=== PATIENT | female | born 1935 | race Caucasian/White ===

== ENCOUNTER 2016-09-08 | Outpatient (CLI) | payer MEDICARE | END 2016-09-08 09:34 | disposition critical access hospital (66) | CPT/HCPCS: A0425; A0429 ==

== ENCOUNTER 2016-09-08 09:50 | Emergency (ER) | payer MEDICARE | END 2016-09-08 12:20 | disposition home or self-care (01) | DX: Z00.00 Encounter for general adult medical examination without abnormal findings (principal); Z13.9 Encounter for screening, unspecified; I10 Essential (primary) hypertension; E11.42 Type 2 diabetes mellitus with diabetic polyneuropathy; K21.9 Gastro-esophageal reflux disease without esophagitis; M19.90 Unspecified osteoarthritis, unspecified site; Z79.82 Long term (current) use of aspirin ==

== ENCOUNTER 2016-12-22 13:17 | Outpatient (CLI) | payer MEDICARE | END 2016-12-22 13:18 | disposition critical access hospital (66) | DX: R40.0 Somnolence (principal); R41.0 Disorientation, unspecified; W18.39XA Other fall on same level, initial encounter; Y92.511 Restaurant or cafe as the place of occurrence of the external cause | CPT/HCPCS: A0425; A0427 ==

== ENCOUNTER 2016-12-22 13:36 | Emergency (ER) | payer MEDICARE ==
--- NOTE | 2016-12-22 13:51 | ED Physician Documentation ---
PD HPI SYNCOPE - Stated complaint Stated Complaint: GLF/CONFUSED - Chief complaint Chief Complaint: Neuro - History obtained from History obtained from: Patient, EMS - Additional information Additional information: This is an 81 -year-old woman lives at [facility], she has a history of hypertension, osteoarthritis, GERD, iron deficiency anemia. She went out to lunch today after getting her nails done and was at the restaurant where she fell backwards. She says she just slipped, and didn't get hurt. On heating unit installer assessment she was mildly hypotensive at about 90/40 and slightly confused which has resolved. At this juncture she says she feels fine has no specific complaints. Review of Systems Ten Systems: 10 systems reviewed and negative Constitutional: denies: Fever, Chills Throat: denies: Sore throat Cardiac: denies: Chest pain / pressure, Palpitations Respiratory: denies: Dyspnea, Cough GI: denies: Abdominal Pain, Nausea, Vomiting, Bloody / black stool PD PAST MEDICAL HISTORY - Past Medical History Past Medical History: Yes Cardiovascular: Hypertension Respiratory: None Neuro: Peripheral neuropathy Endocrine/Autoimmune: Type 2 diabetes GI: GERD Psych: Depression Musculoskeletal: Osteoarthritis, Osteoporosis - Past Surgical History Past Surgical History: Yes General: Appendectomy Ortho: Hip replacement, Knee replacement - Present Medications Home Medications: Ambulatory Orders Medication Instructions Recorded Confirmed Aspirin Chewable [[place] 325 mg PO BID 01/19/15 02/28/16 Aspirin] Citalopram [CeleXA] 40 mg PO DAILY 01/19/15 02/28/16 Furosemide 40 mg PO BID 01/19/15 02/28/16 Lisinopril 5 mg PO DAILY 01/19/15 02/28/16 Multivitamin [Multi-Day Vitamins] 1 each PO DAILY 01/19/15 02/28/16 Pantoprazole [Protonix] 40 mg PO DAILY 01/19/15 02/28/16 traZODone [Desyrel] 150 mg PO HS PRN 01/19/15 02/28/16 Cholecalciferol (Vitamin D3) 2,000 unit PO DAILY 01/24/16 02/28/16 [Vitamin D3] Cyanocobalamin (Vitamin B-12) 2,000 mcg PO DAILY 01/24/16 02/28/16 [Vitamin B-12] Acetaminophen [Tylenol Extra 500 mg PO BID 02/28/16 02/28/16 Strength] Acetaminophen [Tylenol] 650 mg PO Q4H PRN 02/28/16 02/28/16 Ascorbic Acid [Vitamin C] 500 mg PO DAILYWM 02/28/16 02/28/16 Ferrous Sulfate 325 mg PO DAILYWM 02/28/16 02/28/16 Folic Acid 1 mg PO DAILY 02/28/16 02/28/16 Potassium Chloride [K-Dur] 20 meq PO BIDWM 02/28/16 02/28/16 oxyCODONE [Roxicodone] 5 - 10 mg PO Q4H PRN 02/28/16 02/28/16 - Allergies Allergies/Adverse Reactions: Allergies Allergy/AdvReac Type Severity Reaction Status Date / Time No Known Drug Allergies Allergy Verified 02/27/16 21:05 - Social History Does the pt smoke?: No Smoking Status: Never smoker Does the pt drink ETOH?: Yes Does the pt have substance abuse?: No - Immunizations Immunizations are current?: Yes - POLST Patient has POLST: Yes POLST Status: DNR PD ED PE NORMAL - Vitals Vital signs reviewed: Yes - General General: Alert and oriented X 3, No acute distress, Well developed/nourished - HEENT HEENT: PERRL, EOMI - Neck Neck: Supple, no meningeal sign, No bony TTP - Cardiac Cardiac: RRR, No murmur - Respiratory Respiratory: No respiratory distress, Clear bilaterally - Abdomen Abdomen: Soft, Non tender - Extremities Extremities: No edema, No calf tenderness / cord - Neuro Neuro: Alert and oriented X 3, Normal speech - Psych Psych: Normal mood, Normal affect Results - Vitals Vitals: Vital Signs - 24 hr 12/22/16 12/22/16 12/22/16 13:35 14:05 15:13 Temperature 36.5 C Heart Rate 85 92 Heart Rate [ 76 Standing] Respiratory 17 14 Rate Blood Pressure 107/51 L 132/69 H Blood Pressure 116/65 [Standing] O2 Saturation 96 95 Oxygen O2 Source [With Activity] Room air O2 Source [Without Activity] Room air O2 Source Room air - EKG (time done) 1355 Rate: Rate (enter#) (77) Rhythm: NSR [place]: Normal Intervals: 1st degree AVB QRS: Normal Ischemia: Normal ST segments Computer interpretation: Agree with computer - Labs Labs: Laboratory Tests 12/22/16 12/22/16 12/22/16 14:35 14:35 14:35 WBC 6.2 RBC 3.66 L Hgb 11.8 L Hct 35.3 L MCV 96.5 MCH 32.3 H MCHC 33.5 RDW 14.6 Plt Count 187 MPV 7.6 L Neut # 3.3 Lymph # 1.9 [place]yer # 0.7 Eos # 0.1 Baso # 0.1 Absolute Nucleated RBC 0.00 Nucleated RBCs 0.0 Sodium 141 Potassium 4.0 Chloride 106 Carbon Dioxide 25 Anion Gap 10.0 BUN 9 Creatinine 0.7 Estimated GFR (MDRD) 80 L Glucose 144 H Calcium 8.5 Total Bilirubin 0.3 AST 12 ALT 10 Alkaline Phosphatase 84 Troponin I < 0.04 Total Protein 6.5 L Albumin 3.6 Globulin 2.9 Albumin/Globulin Ratio 1.2 Lipase 20 L PD MEDICAL DECISION MAKING - ED course ED course: This is an 81-year-old woman who had a mechanical ground-level fall at a restaurant today, she had been drinking a little bit. No syncope. There is no evidence of life-threatening emergency here, labs were checked without interval change from prior. She was not orthostatic. She was not clinically intoxicated. Departure - Departure Disposition: 01 Home, Self Care Clinical Impression: Fall from ground level, Transient hypotension, Chronic anemia Condition: Good Record reviewed to determine appropriate education?: Yes Instructions: ED Mechanical Fall Comments: Call your doctor to arrange a follow up appointment. Make the next available appointment. In the interim return anytime if worse or if new symptoms develop.
[2016-12-22 14:46] LABS: BASOPHILS # (AUTO) 0.1 10^3/uL (0.0-0.1); BASOPHILS % (AUTO) 0.9 %; EOSINOPHILS # (AUTO) 0.1 10^3/uL (0.0-0.7); EOSINOPHILS % (AUTO) 2.1 %; HCT - HEMATOCRIT 35.3 % (37.0-47.0); HGB - HEMOGLOBIN 11.8 g/dL (12.0-16.0); LYMPHOCYTES # (AUTO) 1.9 10^3/uL (1.5-3.5); LYMPHOCYTES % (AUTO) 31.6 %; MEAN CORPUSCULAR HEMOGLOBIN 32.3 pg (27.0-31.0); MEAN CORPUSCULAR HGB CONC 33.5 g/dL (32.0-36.0); MEAN CORPUSCULAR VOLUME 96.5 fL (81.0-99.0); MEAN PLATELET VOLUME 7.6 fL (7.9-10.8); MONOCYTES # (AUTO) 0.7 10^3/uL (0.0-1.0); MONOCYTES % (AUTO) 11.9 %; NEUTROPHILS # (AUTO) 3.3 10^3/uL (1.5-6.6); NEUTROPHILS % (AUTO) 53.5 %; RED BLOOD COUNT 3.66 10^6/uL (4.20-5.40); RED CELL DISTRIBUTION WIDTH 14.6 % (12.0-15.0); UNCORRECTED WHITE BLOOD COUNT 6.2 x10^3/uL; WHITE BLOOD COUNT 6.2 x10^3/uL (4.8-10.8)
[2016-12-22 15:07] LABS: ALBUMIN/GLOBULIN RATIO 1.2 (1.0-2.2); BILIRUBIN,TOTAL 0.3 mg/dL (0.2-1.0); CALCIUM 8.5 mg/dL (8.5-10.3); CREATININE 0.7 mg/dL (0.4-1.0); TOTAL PROTEIN 6.5 g/dL (6.7-8.2)
[2016-12-22 16:43] VITALS: BP 125/71
== END 2016-12-22 16:41 | disposition home or self-care (01) ==
LOC: EDUNIT# → ED 13:36
DX: I95.89 Other hypotension (principal); W01.0XXA Fall on same level from slipping, tripping and stumbling without subsequent striking against object, initial encounter; Y92.59 Other trade areas as the place of occurrence of the external cause; D50.9 Iron deficiency anemia, unspecified; E11.42 Type 2 diabetes mellitus with diabetic polyneuropathy; I10 Essential (primary) hypertension; K21.9 Gastro-esophageal reflux disease without esophagitis; M19.90 Unspecified osteoarthritis, unspecified site; Z79.82 Long term (current) use of aspirin
CPT/HCPCS: 80053; 81001; 81003; 83690; 84484; 85025; 87086; 93005; 93010; 99284

== ENCOUNTER 2017-02-16 22:13 | Outpatient (CLI) | payer MEDICARE | END 2017-02-16 22:14 | disposition critical access hospital (66) | DX: M79.604 Pain in right leg (principal); W18.30XA Fall on same level, unspecified, initial encounter; Y92.039 Unspecified place in apartment as the place of occurrence of the external cause | CPT/HCPCS: A0425; A0429 ==

== ENCOUNTER 2017-02-16 22:25 | Emergency (ER) | payer MEDICARE ==
[2017-02-16] MEDS ORDERED: ONDANSETRON 4 MG/2 ML VIAL IVP STA (23:03)
[2017-02-16] MEDS ORDERED: HYDROmorphone 1 MG/ML SYRINGE IVP STA (23:03)
[2017-02-16] MEDS ORDERED: ONDANSETRON 4 MG/2 ML VIAL ONE (23:25)
[2017-02-16] MEDS ORDERED: HYDROmorphone 1 MG/ML SYRINGE ONE (23:25)
[2017-02-16 23:46] LABS: BASOPHILS % (AUTO) 0.6 %; EOSINOPHILS # (AUTO) 0.1 10^3/uL (0.0-0.7); EOSINOPHILS % (AUTO) 1.4 %; HCT - HEMATOCRIT 37.7 % (37.0-47.0); HGB - HEMOGLOBIN 12.4 g/dL (12.0-16.0); LYMPHOCYTES # (AUTO) 1.7 10^3/uL (1.5-3.5); LYMPHOCYTES % (AUTO) 26.5 %; MEAN CORPUSCULAR HGB CONC 32.9 g/dL (32.0-36.0); MEAN CORPUSCULAR VOLUME 97.2 fL (81.0-99.0); MONOCYTES # (AUTO) 0.6 10^3/uL (0.0-1.0); MONOCYTES % (AUTO) 9.4 %; NEUTROPHILS # (AUTO) 4.1 10^3/uL (1.5-6.6); NEUTROPHILS % (AUTO) 62.1 %; RED BLOOD COUNT 3.88 10^6/uL (4.20-5.40); RED CELL DISTRIBUTION WIDTH 14.1 % (12.0-15.0); UNCORRECTED WHITE BLOOD COUNT 6.5 x10^3/uL; WHITE BLOOD COUNT 6.5 x10^3/uL (4.8-10.8)
[2017-02-17 00:03] LABS: ALBUMIN/GLOBULIN RATIO 1.1 (1.0-2.2); BILIRUBIN,TOTAL 0.2 mg/dL (0.2-1.0); CALCIUM 8.6 mg/dL (8.5-10.3); CREATININE 0.7 mg/dL (0.4-1.0); POTASSIUM 3.7 mmol/L (3.5-5.0); TOTAL PROTEIN 7.2 g/dL (6.7-8.2)
--- NOTE | 2017-02-17 00:24 | XRAY Preliminary Report ---
Exam: XR Hip w/Pelvis 2-3V RT IMPRESSION: 1. Bilateral hip prostheses with new intertrochanteric and subtrochanteric right femur fracture. [facility] SITE ID: [id number]
--- NOTE | 2017-02-17 00:27 | XRAY Report ---
EXAM: RIGHT HIP AND PELVIS RADIOGRAPHY EXAM DATE: 02/16/2017 10:46 PM. HISTORY: Pain after injury. Difficulty moving the leg. COMPARISONS: 01/24/2016. TECHNIQUE: 1 view of the pelvis and 2 view of the hip. FINDINGS: Bones: Osteopenia. Bilateral hip prostheses. Metal plate and screws in the left femur. New intertroch anteric and subtrochanteric right femur fracture. Joints: No dislocation seen. Soft Tissues: Vascular calcifications. IMPRESSION: 1. Bilateral hip prostheses with new intertrochanteric and subtrochanteric right femur fracture. [facility] Referring Provider Line: [phone] SITE ID: [id number]
--- NOTE | 2017-02-17 01:19 | ED Physician Documentation ---
PD HPI LOWER EXT INJURY - Stated complaint Stated Complaint: GLF/LEG PAIN - Chief complaint Chief Complaint: Ext Problem - History obtained from History obtained from: Patient - History of Present Illness PD HPI LOW EXT INJURY LOCATION: Right, Hip Type of injury: Fall Where injury occurred: Home Timing - onset: Today Timing - duration: Hours Timing - details: Abrupt onset, Still present Improved by: Rest, Immobilization Worsened by: Moving, Palpating Associated symptoms: No: Weakness, Numbness, Tingling, Swelling Contributing factors: Prior ortho surgery, Prosthetic joint. No: Anticoagulated Similar symptoms before: Diagnosis (hip fracture) Recently seen: Not recently seen - Additional information Additional information: 81 y/o female with a fall in the bathroom of her apartment this evening has pain in the right femur area. She is uncertain how the fall happened she states that she just sort of lost her balance and "slumped" to the ground. The fall was not witnessed, the patient does remember the fall and when directly asked if this could have been the hip giving way she indicated it certainly could have been. She was not ill prior to this happening and she denies other injury or syncope related to the fall. She has had prior similar fracture on the left that required a specific revision and that failed as well and she had to have a second revision. She does have osteoporosis. Her other medical history is significant only for hypertension and prior appendectomy bilateral hip replacements and a knee replacement. Review of Systems Constitutional: denies: Fever, Chills, Myalgias, Fatigue Eyes: denies: Decreased vision Ears: denies: Ear pain Nose: denies: Congestion Throat: denies: Sore throat Cardiac: denies: Chest pain / pressure, Palpitations Respiratory: denies: Dyspnea, Cough GI: denies: Abdominal Pain, Nausea, Vomiting : denies: Dysuria, Frequency Skin: denies: Rash, Laceration (s) Musculoskeletal: reports: Extremity pain, Joint pain. denies: Neck pain, Back pain Neurologic: denies: Generalized weakness, Focal weakness, Numbness, Difficulty speaking, Near syncope, Confused, Altered mental status, Headache, Head injury, LOC PD PAST MEDICAL HISTORY - Past Medical History Past Medical History: Yes Cardiovascular: Hypertension Respiratory: None Neuro: Peripheral neuropathy Endocrine/Autoimmune: None GI: GERD Psych: Depression Musculoskeletal: Osteoarthritis, Osteoporosis - Past Surgical History Past Surgical History: Yes General: Appendectomy Ortho: Hip replacement, Knee replacement - Present Medications Home Medications: Ambulatory Orders Medication Instructions Recorded Confirmed Citalopram [CeleXA] 40 mg PO DAILY 01/19/15 02/16/17 Furosemide 40 mg PO DAILY 01/19/15 02/16/17 Lisinopril 10 mg PO DAILY 01/19/15 02/16/17 traZODone [Desyrel] 150 mg PO HS PRN 01/19/15 02/16/17 Cholecalciferol (Vitamin D3) 2,000 unit PO DAILY 01/24/16 02/16/17 [Vitamin D3] Cyanocobalamin (Vitamin B-12) 1,000 mcg PO DAILY 01/24/16 02/28/16 [Vitamin B-12] Acetaminophen [Tylenol] 650 mg PO Q4H PRN 02/28/16 02/16/17 Ascorbic Acid [Vitamin C] 500 mg PO DAILYWM 02/28/16 02/16/17 Ferrous Sulfate 325 mg PO DAILYWM 02/28/16 02/16/17 Folic Acid 1 mg PO DAILY 02/28/16 02/16/17 Potassium Chloride [K-Dur] 20 meq PO DAILYWM 02/28/16 02/16/17 oxyCODONE [Roxicodone] 5 - 10 mg PO Q4H PRN 02/28/16 02/16/17 Lactobacillus Acidophilus 1 each PO BID PRN 02/16/17 02/16/17 [Acidophilus] Omeprazole 20 mg PO DAILY 02/16/17 02/16/17 - Allergies Allergies/Adverse Reactions: Allergies Allergy/AdvReac Type Severity Reaction Status Date / Time No Known Drug Allergies Allergy Verified 02/16/17 22:33 - Social History Does the pt smoke?: No Smoking Status: Never smoker Does the pt drink ETOH?: Yes Does the pt have substance abuse?: No - Immunizations Immunizations are current?: Yes - POLST Patient has POLST: Yes POLST Status: DNR PD ED PE NORMAL - Vitals Vital signs reviewed: Yes (hypertensive with low O2 sat) - General General: No acute distress, Well developed/nourished - HEENT HEENT: Atraumatic, PERRL - Neck Neck: Supple, no meningeal sign - Cardiac Cardiac: RRR, No murmur - Respiratory Respiratory: No respiratory distress, Clear bilaterally - Abdomen Abdomen: Soft, Non tender - Back Back: No CVA TTP, No spinal TTP - Derm Derm: Normal color, Warm and dry, No rash - Extremities Extremities: Other (There is shortening and external rotation to the right LE. There is mild tenderness to the right trochanter and no tenderenss along the pubic symphysis. There is some pain to movement of the hip joint through ROM. Distal n/v intact. ) - Neuro Neuro: No motor deficit, No sensory deficit - Psych Psych: Normal mood, Normal affect Results - Vitals Vitals: Vital Signs - 24 hr 02/16/17 02/16/17 02/17/17 22:27 23:34 00:23 Temperature 36.9 C Heart Rate 77 79 80 Respiratory 16 16 17 Rate Blood Pressure 163/89 H 176/80 H 165/77 H O2 Saturation 91 L 91 L 98 02/17/17 02/17/17 02/17/17 01:47 02:40 03:10 Temperature 36.9 C 36.7 C Heart Rate 78 78 77 Respiratory 16 16 17 Rate Blood Pressure 162/80 H 186/84 H 173/80 H O2 Saturation 98 97 99 02/17/17 02/17/17 04:09 05:54 Temperature 36.7 C Heart Rate 70 81 Respiratory 17 15 Rate Blood Pressure 146/63 H 165/70 H O2 Saturation 94 95 Oxygen O2 Source [] Room air O2 Source [] Room air O2 Source Nasal cannula Oxygen Flow Rate 2 - Labs Labs: Laboratory Tests 02/16/17 02/16/17 02/16/17 23:41 23:41 23:41 WBC 6.5 RBC 3.88 L Hgb 12.4 Hct 37.7 MCV 97.2 MCH 32.0 H MCHC 32.9 RDW 14.1 Plt Count 206 MPV 8.0 Neut # 4.1 Lymph # 1.7 Emanuel # 0.6 Eos # 0.1 Baso # 0.0 Absolute Nucleated RBC 0.00 Nucleated RBCs 0.0 Sodium 137 Potassium 3.7 Chloride 102 Carbon Dioxide 23 Anion Gap 12.0 BUN 12 Creatinine 0.7 Estimated GFR (MDRD) 80 L Glucose 153 H Calcium 8.6 Total Bilirubin 0.2 AST 18 ALT 13 Alkaline Phosphatase 76 Troponin I < 0.04 Total Protein 7.2 Albumin 3.8 Globulin 3.4 Albumin/Globulin Ratio 1.1 Lipase 13 L Urine Color Urine Clarity Urine pH Ur Specific Ec[place] Urine Protein Urine Glucose (UA) Urine Ketones Urine Occult Blood Urine Nitrite Urine Bilirubin Urine Urobilinogen Ur Leukocyte Esterase Ur Microscopic Review Urine Culture Comments 02/17/17 02:35 WBC RBC Hgb Hct MCV MCH MCHC RDW Plt Count MPV Neut # Lymph # Emanuel # Eos # Baso # Absolute Nucleated RBC Nucleated RBCs Sodium Potassium Chloride Carbon Dioxide Anion Gap BUN Creatinine Estimated GFR (MDRD) Glucose Calcium Total Bilirubin AST ALT Alkaline Phosphatase Troponin I Total Protein Albumin Globulin Albumin/Globulin Ratio Lipase Urine Color YELLOW Urine Clarity CLEAR Urine pH 6.0 Ur Specific [place] 1.015 Urine Protein NEGATIVE Urine Glucose (UA) NEGATIVE Urine Ketones TRACE Urine Occult Blood NEGATIVE Urine Nitrite NEGATIVE Urine Bilirubin NEGATIVE Urine Urobilinogen 0.2 (NORMAL) Ur Leukocyte Esterase NEGATIVE Ur Microscopic Review NOT INDICATED Urine Culture Comments NOT INDICATED - Rads (name of study) Right hip with pelvis Radiology: Prelim report reviewed (Impression: 1. Bilateral hip prostheses with new intertrochanteric and subtrochanteric right femur fracture.), EMP read indepedently, See rad report PD MEDICAL DECISION MAKING - ED course Complexity details: reviewed old records, reviewed results, re-evaluated patient , considered differential, d/w patient, d/w spa consultant ([facility] here recommends transfer of patient as she will need a revision and structural graft. ) ED course: 81-year-old female with a periprosthetic fracture appears to have significant osteoporosis and failure around the surface of the proximal end of the prosthesis.The patient herself appears quite comfortable with the fracture but will need repair and this is beyond the scope of this hospital. Departure - Departure Disposition: 02 Transfer Acute Care Hosp Clinical Impression: [place]-prosthetic femoral shaft fracture
[2017-02-17 02:44] LABS: BILIRUBIN,URINE NEGATIVE (NEGATIVE)
[2017-02-17 02:45] LABS: UA CHARGE (STRIP ONLY) YES; UR CULTURE IF IND NOT INDICATED
[2017-02-17] MEDS ORDERED: oxyCOD/ACETAMIN 5 MG/325 MG TABLET PO STA ×3 (02:59→13:23)
[2017-02-17] MEDS ORDERED: oxyCOD/ACETAMIN 5 MG/325 MG TABLET PO ONE ×3 (03:07→13:25)
[2017-02-17 14:07] VITALS: BP 214/88
[2017-02-17] MEDS ORDERED: LISINOPRIL 5 MG TABLET ONE (14:07)
[2017-02-17] MEDS: LISINOPRIL 5 MG TABLET PO STA (14:08)
--- NOTE | 2017-02-17 15:23 | ED Physician Documentation ---
ED Addendum - Addendum Addendum: At change of shift the patient's care was signed over to me pending call back from an accepting orthopedic surgeon. Several hours passed with no return call despite repeated pages. It was subsequently determined that [facility] would have to authorize the transfer. [facility] service was contacted and subsequently arranged for the patient to be transferred to [facility], with accepting surgeon being Dr. Dawood Higgins. During this time the patient was administered Percocet 1 tablet orally 2. She remained calm and relatively in good pain control. She is being transferred by [facility] ambulance. Transfer forms were completed Morphine 4 mg was administered just prior to transport. 02/17/17 15:26
[2017-02-17] MEDS ORDERED: MORPHINE 2 MG/ML SYRINGE IVP STA (15:30)
[2017-02-17] MEDS ORDERED: MORPHINE 2 MG/ML SYRINGE ONE (15:30)
== END 2017-02-17 15:39 | disposition short-term general hospital (02) ==
LOC: EDUNIT# → ED 22:25
DX: S72.391A Other fracture of shaft of right femur, initial encounter for closed fracture (principal); W18.30XA Fall on same level, unspecified, initial encounter; Y92.031 Bathroom in apartment as the place of occurrence of the external cause; G62.9 Polyneuropathy, unspecified; M81.0 Age-related osteoporosis without current pathological fracture; Z96.643 Presence of artificial hip joint, bilateral; Z96.659 Presence of unspecified artificial knee joint
CPT/HCPCS: 36415; 51702; 73502; 80053; 81003; 83690; 84484; 85025; 96374; 99285; A9270; 81001; 87086

== ENCOUNTER 2017-03-15 17:51 | Outpatient (CLI) | payer MEDICARE | END 2017-03-15 17:52 | disposition critical access hospital (66) | LOC: EMS 17:51 | PROVIDERS: ATTEND Surgery | DX: M25.551 Pain in right hip (principal); W18.30XA Fall on same level, unspecified, initial encounter; Y92.9 Unspecified place or not applicable | CPT/HCPCS: A0425; A0429 ==

== ENCOUNTER 2017-03-15 18:09 | Emergency (ER) | payer MEDICARE ==
[2017-03-15] MEDS ORDERED: SODIUM CHLORIDE FLUSH 0.9% 10 ML SYRINGE IVP ONE (18:23)
--- NOTE | 2017-03-15 21:14 | ED Physician Documentation ---
History of Present Illness - Stated complaint Stated Complaint: HBD - Chief complaint Chief Complaint: Ext Problem - History obtained from History obtained from: Patient, EMS - History of Present Illness Timing: Today, How many hours ago (1) Pain level max: 4 Pain level now: 0 Improved by: rest Worsened by: palpation, movement - Additonal information Additional information: slipped while returning from bathroom this morning, landed on carpeted surface, no LOC, c/o right hip pain but this has resolved prior to my evaluation. Review of Systems Constitutional: denies: Fever Cardiac: reports: Reviewed and negative Respiratory: reports: Reviewed and negative GI: reports: Reviewed and negative : denies: Dysuria, Frequency Musculoskeletal: reports: Joint pain, Pain with weight bearing Neurologic: reports: Reviewed and negative PD PAST MEDICAL HISTORY - Past Medical History Past Medical History: Yes Cardiovascular: Hypertension Respiratory: None Neuro: Peripheral neuropathy Endocrine/Autoimmune: None GI: GERD Psych: Depression Musculoskeletal: Osteoarthritis, Osteoporosis - Past Surgical History Past Surgical History: Yes General: Appendectomy Ortho: Hip replacement, Knee replacement - Present Medications Home Medications: Ambulatory Orders Medication Instructions Recorded Confirmed Citalopram [CeleXA] 40 mg PO DAILY 01/19/15 02/16/17 Furosemide 40 mg PO DAILY 01/19/15 02/16/17 Lisinopril 10 mg PO DAILY 01/19/15 02/16/17 traZODone [Desyrel] 150 mg PO HS PRN 01/19/15 02/16/17 Cholecalciferol (Vitamin D3) 2,000 unit PO DAILY 01/24/16 02/16/17 [Vitamin D3] Cyanocobalamin (Vitamin B-12) 1,000 mcg PO DAILY 01/24/16 02/28/16 [Vitamin B-12] Acetaminophen [Tylenol] 650 mg PO Q4H PRN 02/28/16 02/16/17 Ascorbic Acid [Vitamin C] 500 mg PO DAILYWM 02/28/16 02/16/17 Ferrous Sulfate 325 mg PO DAILYWM 02/28/16 02/16/17 Folic Acid 1 mg PO DAILY 02/28/16 02/16/17 Potassium Chloride [K-Dur] 20 meq PO DAILYWM 02/28/16 02/16/17 Lactobacillus Acidophilus 1 each PO BID PRN 07/05/17 07/05/17 [Acidophilus] Omeprazole 20 mg PO DAILY 02/16/17 02/16/17 - Allergies Allergies/Adverse Reactions: Allergies Allergy/AdvReac Type Severity Reaction Status Date / Time No Known Drug Allergies Allergy Verified 03/15/17 18:37 - Social History Does the pt smoke?: No Smoking Status: Never smoker Does the pt drink ETOH?: Yes Does the pt have substance abuse?: No - Immunizations Immunizations are current?: Yes - POLST Patient has POLST: Yes POLST Status: DNR PD ED PE NORMAL - Vitals Vital signs reviewed: Yes - General General: Alert and oriented X 3, No acute distress, Well developed/nourished - HEENT HEENT: Atraumatic - Neck Neck: Supple, no meningeal sign, No bony TTP - Cardiac Cardiac: RRR, No murmur, No gallop, No rub - Respiratory Respiratory: No respiratory distress, Clear bilaterally - Abdomen Abdomen: Soft, Non tender - Back Back: No CVA TTP, No spinal TTP - Derm Derm: Normal color, Warm and dry, No rash - Neuro Neuro: Alert and oriented X 3, No motor deficit PD ED PE EXPANDED - Extremities Extremities: Limited ROM (tenderness illicited with right hip abduction past 45 degrees) Results - Vitals Vitals: Oxygen O2 Source [With Activity] Room air O2 Source [Without Activity] Room air O2 Source Room air - Rads (name of study) right hip xrays Radiology: Prelim report reviewed, See rad report PD MEDICAL DECISION MAKING - ED course Complexity details: reviewed old records, reviewed results, re-evaluated patient , considered differential, d/w patient, d/w family Departure - Departure Disposition: 01 Home, Self Care Clinical Impression: Fall Qualifiers: Encounter type: initial encounter Qualified Code(s): W19.XXXA - Unspecified fall, initial encounter Hip pain Qualifiers: Laterality: right Qualified Code(s): M25.551 - Pain in right hip Condition: Good Instructions: ED Mechanical Fall, ED Contusion Hip Follow-Up: Octavia Chow MD [Primary Care Provider] - Within 1 week Discharge Date/Time: 03/16/17 00:45
--- NOTE | 2017-03-15 22:35 | XRAY Preliminary Report ---
Exam: XR Hip w/Pelvis 2-3V RT IMPRESSION: 1. Healing right intertrochanteric fracture. 2. Status post bilateral THR. [facility] SITE ID: [id number]
--- NOTE | 2017-03-15 22:38 | XRAY Report ---
EXAM: RIGHT HIP AND PELVIS RADIOGRAPHY EXAM DATE: 03/15/2017 10:04 PM. HISTORY: Fall, right hip pain. COMPARISONS: 02/16/2017. TECHNIQUE: 1 view of the pelvis and 1 view of the hip. FINDINGS: Bones: Osteopenia. Right intertrochanteric fracture with prominent subtrochanteric involvement as pre viously described. Callus formation present. No change in alignment or apposition. No definite new fr acture or other bone lesion. Joints: Bilateral total hip prostheses in anatomic alignment. Additional metal plate and circumferent ial wire on the left. Soft Tissues: Vascular calcifications. IMPRESSION: 1. Healing right intertrochanteric fracture. 2. Status [facility] Referring Provider Line: [phone] SITE ID: [id number]
[2017-03-15 23:32] VITALS: BP 143/69
== END 2017-03-16 00:45 | disposition home or self-care (01) ==
LOC: ED 18:09
DX: M25.551 Pain in right hip (principal); I10 Essential (primary) hypertension; G62.9 Polyneuropathy, unspecified; Z96.649 Presence of unspecified artificial hip joint; Z96.659 Presence of unspecified artificial knee joint
CPT/HCPCS: 99283; 99284

== ENCOUNTER 2017-05-12 09:44 | Outpatient (CLI) | payer MEDICARE ==
--- NOTE | 2017-05-12 10:40 | XRAY Report ---
RIGHT HIP AND PELVIS: 05/12/2017 CLINICAL INDICATION: Right hip deviation. FINDINGS: Frontal view of the hips and pelvis and frogleg lateral view of the right hip are compared to previous films of 03/15/2017. There has been continued healing of the right proximal femoral fra cture. Right hip replacement appears stable. No new fracture is appreciated. Vascular calcificatio ns are seen. IMPRESSION: CONTINUED HEALING OF RIGHT PROXIMAL FEMORAL FRACTURE, WITH STABLE APPEARANCE OF RIGHT HI P REPLACEMENT. JOB #: [id number] EXT JOB #:[id number]
== END 2017-05-12 09:45 | disposition home or self-care (01) ==
LOC: DI 09:44
PROVIDERS: ATTEND Internal Medicine
DX: S72.001D Fracture of unspecified part of neck of right femur, subsequent encounter for closed fracture with routine healing (principal); Z96.641 Presence of right artificial hip joint

== ENCOUNTER 2017-09-11 06:03 | Emergency (ER) | payer MEDICARE ==
[2017-09-11] MEDS ORDERED: SODIUM CHLORIDE 0.9% 1,000 ML IV ONE (07:39)
[2017-09-11] MEDS ORDERED: ACETAMINOPHEN 1,000 MG/100 ML 100 ML IV STA (07:39)
[2017-09-11 07:42] LABS: BASOPHILS # (AUTO) 0.1 10^3/uL (0.0-0.1); BASOPHILS % (AUTO) 0.9 %; EOSINOPHILS % (AUTO) 0.4 %; HGB - HEMOGLOBIN 13.1 g/dL (12.0-16.0); LYMPHOCYTES # (AUTO) 1.2 10^3/uL (1.5-3.5); LYMPHOCYTES % (AUTO) 11.3 %; MEAN CORPUSCULAR HEMOGLOBIN 30.6 pg (27.0-31.0); MEAN CORPUSCULAR HGB CONC 34.9 g/dL (32.0-36.0); MEAN CORPUSCULAR VOLUME 87.7 fL (81.0-99.0); MEAN PLATELET VOLUME 6.8 fL (7.9-10.8); MONOCYTES # (AUTO) 0.7 10^3/uL (0.0-1.0); MONOCYTES % (AUTO) 6.5 %; NEUTROPHILS # (AUTO) 8.6 10^3/uL (1.5-6.6); NEUTROPHILS % (AUTO) 80.9 %; PLT - PLATELET COUNT 312 10^3/uL (130-450); RED CELL DISTRIBUTION WIDTH 14.1 % (12.0-15.0); WHITE BLOOD COUNT 10.7 x10^3/uL (4.8-10.8)
--- NOTE | 2017-09-11 07:50 | ED Physician Documentation ---
History of Present Illness - Stated complaint Stated Complaint: UTI SYMPTOMS - Chief complaint Chief Complaint: UTI - Additonal information Additional information: hx from pt she was BIBA before my shift and there is no EMS report to review yet pt states she was recently txed for a UTI at [facility] but [facility] paperwork does not have any culture results nor any indication what antibiotic the pt was recently on in any case pt states she was txed for a UTI last week with an unknown antibiotic, did not get better, is now off the antibiotic, and now she is worse has subj fever chills and severe abd pain primarily LLQ no NV loose BM but no diarrhea and no blood in stool states she had a soft non bloody BM today + urinary sx no flank pain no prior abd surgery per pt per [facility] paperwork Pmhx CHF EtOH COPD IBS anemia HTN DM paroxysmla a fib HTN GERD and her meds are citalopram loperamide senna ranitidine apap cyanocobalamin cholecalciferol lisinopril nystatin powder lasix folic vit C Review of Systems Constitutional: reports: Fever, Chills Cardiac: denies: Chest pain / pressure Respiratory: denies: Dyspnea, Cough GI: reports: Abdominal Pain (LLQ). denies: Nausea, Vomiting, Diarrhea, Bloody / black stool : reports: Dysuria Musculoskeletal: denies: Back pain Endocrine: denies: Easy bruising / bleeding Immunocompromised: denies: Immunocompromised PD PAST MEDICAL HISTORY - Past Medical History Past Medical History: Yes Cardiovascular: Hypertension Respiratory: None Neuro: Peripheral neuropathy Endocrine/Autoimmune: None GI: GERD Psych: Depression Musculoskeletal: Osteoarthritis, Osteoporosis - Past Surgical History Past Surgical History: Yes General: Appendectomy Ortho: Hip replacement, Knee replacement - Present Medications Home Medications: Ambulatory Orders Medication Instructions Recorded Confirmed Citalopram [CeleXA] 40 mg PO DAILY 01/19/15 02/16/17 Furosemide 40 mg PO DAILY 01/19/15 02/16/17 Lisinopril 10 mg PO DAILY 01/19/15 02/16/17 traZODone [Desyrel] 150 mg PO HS PRN 01/19/15 02/16/17 Cholecalciferol (Vitamin D3) 2,000 unit PO DAILY 01/24/16 02/16/17 [Vitamin D3] Cyanocobalamin (Vitamin B-12) 1,000 mcg PO DAILY 01/24/16 02/28/16 [Vitamin B-12] Acetaminophen [Tylenol] 650 mg PO Q4H PRN 02/28/16 02/16/17 Ascorbic Acid [Vitamin C] 500 mg PO DAILYWM 02/28/16 02/16/17 Ferrous Sulfate 325 mg PO DAILYWM 02/28/16 02/16/17 Folic Acid 1 mg PO DAILY 02/28/16 02/16/17 Potassium Chloride [K-Dur] 20 meq PO DAILYWM 02/28/16 02/16/17 Lactobacillus Acidophilus 1 each PO BID PRN 02/16/17 02/16/17 [Acidophilus] Omeprazole 20 mg PO DAILY 02/16/17 02/16/17 - Allergies Allergies/Adverse Reactions: Allergies Allergy/AdvReac Type Severity Reaction Status Date / Time No Known Drug Allergies Allergy Verified 09/11/17 06:12 - Social History Does the pt smoke?: No Smoking Status: Never smoker Does the pt drink ETOH?: Yes Does the pt have substance abuse?: No - Immunizations Immunizations are current?: Yes - POLST Patient has POLST: Yes POLST Status: DNR PD ED PE NORMAL - Vitals Vital signs reviewed: Yes - General General: Alert and oriented X 3, Other (groaning in pain) - HEENT HEENT: PERRL - Neck Neck: Supple, no meningeal sign - Cardiac Cardiac: RRR - Respiratory Respiratory: No respiratory distress, Clear bilaterally - Abdomen Abdomen: Soft. No: Non tender (TTP LLQ with guarding, no hernia appreciated) - Back Back: No CVA TTP - Derm Derm: Normal color - Neuro Neuro: Alert and oriented X 3 Results - Vitals Vitals: Vital Signs - 24 hr 09/11/17 09/11/17 09/11/17 06:06 08:24 09:16 Temperature 36.0 C L Heart Rate 83 84 86 Respiratory 20 32 H 32 H Rate Blood Pressure 164/83 H 211/98 H 198/98 H O2 Saturation 95 100 100 09/11/17 09/11/17 09/11/17 11:34 14:45 14:50 Temperature 36.3 C L 35.8 C L Heart Rate 90 105 H 92 Respiratory 24 22 Rate Blood Pressure 198/104 H 180/82 H O2 Saturation 99 100 Oxygen O2 Source [] Room air O2 Source [] Room air O2 Source Room air - Labs Labs: Laboratory Tests 09/11/17 09/11/17 09/11/17 07:33 07:33 07:33 WBC 10.7 RBC 4.30 Hgb 13.1 Hct 37.7 MCV 87.7 MCH 30.6 MCHC 34.9 RDW 14.1 Plt Count 312 MPV 6.8 L Neut # 8.6 H Lymph # 1.2 L [place] # 0.7 Eos # 0.0 Baso # 0.1 Absolute Nucleated RBC 0.00 Nucleated RBC % 0.0 Sodium 133 L Potassium 4.1 Chloride 99 L Carbon Dioxide 18 L Anion Gap 16.0 H BUN 14 Creatinine 0.7 Estimated GFR (MDRD) 80 L Glucose 130 H Lactic Acid 2.4 H Calcium 8.8 Total Bilirubin 0.4 AST 18 ALT < 10 L Alkaline Phosphatase 97 Total Protein 7.5 Albumin 3.1 L Globulin 4.4 H Albumin/Globulin Ratio 0.7 L Lipase 16 L Urine Color Urine Clarity Urine pH Ur Specific [place] Urine Protein Urine Glucose (UA) Urine Ketones Urine Occult Blood Urine Nitrite Urine Bilirubin Urine Urobilinogen Ur Leukocyte Esterase Ur Microscopic Review Urine Culture Comments 09/11/17 08:30 WBC RBC Hgb Hct MCV MCH MCHC RDW Plt Count MPV Neut # Lymph # [place] # Eos # Baso # Absolute Nucleated RBC Nucleated RBC % Sodium Potassium Chloride Carbon Dioxide Anion Gap BUN Creatinine Estimated GFR (MDRD) Glucose Lactic Acid Calcium Total Bilirubin AST ALT Alkaline Phosphatase Total Protein Albumin Globulin Albumin/Globulin Ratio Lipase Urine Color Cancelled Urine Clarity Cancelled Urine pH Cancelled Ur Specific [place] Cancelled Urine Protein Cancelled Urine Glucose (UA) Cancelled Urine Ketones Cancelled Urine Occult Blood Cancelled Urine Nitrite Cancelled Urine Bilirubin Cancelled Urine Urobilinogen Cancelled Ur Leukocyte Esterase Cancelled Ur Microscopic Review Cancelled Urine Culture Comments Cancelled - Rads (name of study) CT angio AP Radiology: See rad report (severe fistula between sigmoid and bladder likely 2/ 2 diverticulitis with robby stoool in bladder, may be an abscess but artifact from ortho hardware obscures much of LLQ) PD MEDICAL DECISION MAKING - ED course ED course: severe pain elev lactate hx a fib got CT angio AP as mesenteric ischemia was on the ddx shows divertic with large fistula from sigmoid to bladder, stool in bladder, diff to eval extent of infl or if abscess 2/2 artifact from prosthetic hip d/w Dr Tejada who rec admit to medicine for IV ab and to "cool off" and she will consult Dr Tejdaa reviewed CT and called back and feels pt needs a urologist, cystoscopy, IR drain pt is a [facility] pt - spoke to transfer center - they will try to arrange transfer to [facility] - gave zosyn and flagyl continued pain ofirmev and then morphine not helping - will try dilaudid - still having sig pain but somewhat better controlled UA was cancelled due to contamination with robby feces Departure - Departure Disposition: 02 Transfer Acute Care Hosp Clinical Impression: Colovesical fistula, Diverticulitis Condition: Fair Discharge Date/Time: 09/11/17 15:20
[2017-09-11 07:51] LABS: ALBUMIN 3.1 g/dL (3.2-5.5); ALBUMIN/GLOBULIN RATIO 0.7 (1.0-2.2); ALKALINE PHOSPHATASE 97 IU/L (42-121); ALT ALANINE AMINOTRANSFERASE < 10 IU/L (10-60); AST ASPARTATE AMINOTRANSFERASE 18 IU/L (10-42); BILIRUBIN,TOTAL 0.4 mg/dL (0.2-1.0); BUN - BLOOD UREA NITROGEN 14 mg/dL (6-20); CALCIUM 8.8 mg/dL (8.5-10.3); CARBON DIOXIDE - CO2 18 mmol/L (21-32); CHLORIDE 99 mmol/L (101-111); CREATININE 0.7 mg/dL (0.4-1.0); GFR - MDRD 80 (>89); GLUCOSE 130 mg/dL (70-100); LIPASE 16 U/L (22-51); SODIUM 133 mmol/L (135-145); TOTAL PROTEIN 7.5 g/dL (6.7-8.2)
[2017-09-11] MEDS ORDERED: IOPAMIDOL-300 100 ML VIAL ONE (08:33)
[2017-09-11] MEDS ORDERED: PROMETHAZINE INJ 12.5 MG in SODIUM CHLORIDE 0.9% 50 ML IV STA (08:56)
[2017-09-11] MEDS ORDERED: MORPHINE 2 MG/ML CARPUJECT IVP STA ×3 (08:56→11:16)
[2017-09-11] MEDS ORDERED: IOPAMIDOL-300 100 ML VIAL IVP ONE (09:00)
[2017-09-11] MEDS ORDERED: PIPERACILLIN/TAZOBACTAM 3.375 GM in SODIUM CHLORIDE 0.9% MINIBAG 100 ML IV STA (09:33)
--- NOTE | 2017-09-11 09:37 | CT Report ---
EXAM: CT ANGIOGRAM ABDOMEN AND PELVIS WITH CONTRAST EXAM DATE: 09/11/2017 09:00 AM. CLINICAL HISTORY: LLQ abd pain elevated lactate. COMPARISONS: None. TECHNIQUE: Routine helical CT angiogram imaging was performed through the abdomen and pelvis in the a rterial phase. IV contrast: 100ML OF ISOVUE 300. Enteric contrast: No. Reconstructions: Coronal, sagi ttal, and 3D MIP reconstructions. In accordance with CT protocol optimization, one or more of the following dose reduction techniques w ere utilized for this exam: automated exposure control, adjustment of mA and/or KV based on patient s ize, or use of iterative reconstructive technique. FINDINGS: Vasculature: No aneurysm or evidence of dissection in the abdominal aorta and iliac arteries. Moderat e atherosclerotic calcifications. The visualized mesenteric and solid organ vascular structures demon strate mild to moderate atherosclerotic calcifications but are normal in caliber. Lung Bases: No significant abnormality. Abdominal Solid Organs: The liver, spleen, pancreas, and adrenal glands demonstrate no significant ab normality. 3 cm simple cyst in the left kidney; the kidneys otherwise demonstrate no significant abno rmality. Gallbladder/biliary tree: Cholelithiasis; no evidence of cholecystitis or biliary dilatation. Peritoneal Cavity: No ascites or pneumoperitoneum. No bowel obstruction. Severe diverticulosis, most pronounced in the sigmoid colon. There is a fistula between either the rectum and the bladder or the sigmoid colon and the bladder and the bladder is distended with gas and contains a large amount of st ool. Evaluation of this region is limited by streak artifact from bilateral hip arthroplasties, but t here may be an abscess between the rectum and sigmoid colon. There is mild inflammatory fat stranding in this region. Pelvic Organs: Suboptimal evaluation secondary to artifact. The uterus appears to be surgically absen t. Bones: Bilateral total hip arthroplasties. No acute osseous abnormality or aggressive osseous lesion. Other: None. IMPRESSION: Severe colovesical fistula with a large amount of gas and stool in the urinary bladder. T his is likely secondary to diverticulitis. Possible diverticular abscess in this region; evaluation i s suboptimal secondary to artifact from the hip prostheses. Results discussed Dr. Connors at 0930 hrs. [facility] Referring Provider Line: [phone] SITE ID: [id number]
[2017-09-11] MEDS ORDERED: metroNIDAZOLE 500 MG/100 ML 500 MG/100 ML BAG IV ONE (11:57)
[2017-09-11] MEDS ORDERED: HYDROmorphone 1 MG/ML SYRINGE IVP STA ×2 (12:09→14:28)
[2017-09-11 14:49] VITALS: BP 180/82
== END 2017-09-11 15:20 | disposition short-term general hospital (02) ==
LOC: EDBD → EDUNIT# → ED 06:03
DX: K63.2 Fistula of intestine (principal); K57.92 Diverticulitis of intestine, part unspecified, without perforation or abscess without bleeding; I10 Essential (primary) hypertension; F32.9 Major depressive disorder, single episode, unspecified
CPT/HCPCS: 36415; 74174; 80053; 83605; 83690; 85025; 96361; 96365; 96367; 96375; 96376; 99284; J0131; J1170; J7040; Q9967; 81001; 81003; 87086

== ENCOUNTER 2017-11-11 16:52 | Outpatient (CLI) | payer MEDICARE ==
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
== END 2017-11-11 16:53 | disposition home or self-care (01) ==
LOC: PC 16:52
PROVIDERS: ATTEND Nurse Practitioner Adult Health
DX: Z51.5 Encounter for palliative care (principal); R30.0 Dysuria; G89.29 Other chronic pain; N32.1 Vesicointestinal fistula; K57.92 Diverticulitis of intestine, part unspecified, without perforation or abscess without bleeding; I11.0 Hypertensive heart disease with heart failure; I50.9 Heart failure, unspecified; J44.9 Chronic obstructive pulmonary disease, unspecified; R53.1 Weakness; I48.91 Unspecified atrial fibrillation; F32.9 Major depressive disorder, single episode, unspecified; F10.20 Alcohol dependence, uncomplicated; Z79.891 Long term (current) use of opiate analgesic; Z66 Do not resuscitate

== ENCOUNTER 2017-11-24 16:03 | Outpatient (CLI) | payer MEDICARE ==
--- NOTE | 2017-11-24 16:43 | CONSULTATION NOTE ---
Palliative Care Follow Up - Referral Referring Provider: Dr Octavia Chow Time of Visit: 11/24/2017. 11:00 - 11:15 Referral setting: Assisted living (Seen in home setting due to taxing and considerable effort required to leave the home secondary to colovesical fistula and leakage.) Referral Reason: Diverticulitis with colovesical fistula / Pall Care - Information Sources Records reviewed: RN notes reviewed, Previous records reviewed History/Review of Systems obtained from: Patient, Nursing Exam limitations: Clinical condition (patient with some memory issues) - History of Present Illness Update Brief HPI Update: -82-year-old woman presenting at ED on 09/11/2017 with left lower quadrant pain to [facility] ED. -Diagnosis: severe colovesical fistula with a large amount of gas and stool found in the urinary bladder secondary to severe diverticulitis. -Medical history: Colovesical fistula, HTN, peripheral neuropathy, GERD, diverticulitis IBS, incontinence, recurrent UTIs, depression, osteoarthritis, osteoporosis, h/o appendectomy, h/o colonoscopy, hip replacement, knee replacement, long h/o alcohol abuse/recent withdrawal with retirement stay. -She was transferred to [facility] from [facility], and it is unclear whether or not she had a colonoscopy/cystoscopy (it is recorded that she had surgery at [facility]) or whether surgery was deferred until she healed. - Patient was discharged to [facility], and at that time she was adamant in saying she did not want a "colostomy." -She was anxious to get back to [facility] where she could drink again (she is an active alcoholic). -Patient has been changing her mind numerous times about whether to go forward with surgery or be managed with antibiotics. -There was a lack of clarity of goals, confusion about her prognosis, and she was declined by hospice and was referred to palliative care. -She has been back at [facility] for couple weeks, and is on ongoing Macrobid for maintenance, but she is becoming symptomatic. -Her opioid pain medication was discontinued yesterday by her PCP due to her active alcoholism. -Nursing reports the patient denies drinking, but bottles are found hidden in various places (e.g., the laundry room across from her unit). -Apparently there are an incidence of the patient cancelling a physical therapy session and going out (using paratransit) to purchase alcohol. -Today she reports her pain is at baseline: burning urination, etc. -Tylenol is now her only pain medication. Nursing anticipates the patient will access and increase her alcohol consumption to make up for loss of opioid pain control. -Nursing reports the daughters are enablers: when one of them visited recently, there was a "marimar green party" with the patient. -The patient indicates she is expects to go to the surgery consultation with Dr Gus Nur, which has been changed to , 12/08/17 at 1330. -She has no other questions or concerns today. Social History - Living Situation Living arrangement: Assisted living ([facility]) Living Situation: With caregiver(s) Support System: Patient has been for 3 years. She lived with her in [facility], then they moved together to [facility]. After his , she moved to [facility]. She has two adult daughters, one lives in [place], the other in [place]. Medications/Allergies - Medications Home Medications: Ambulatory Orders Medication Instructions Recorded Confirmed Citalopram [CeleXA] 40 mg PO DAILY 01/19/15 11/24/17 Lisinopril 10 mg PO DAILY 01/19/15 11/24/17 Cholecalciferol (Vitamin D3) 2,000 unit PO DAILY 01/24/16 11/24/17 [Vitamin D3] Cyanocobalamin (Vitamin B-12) 1,000 mcg PO DAILY 01/24/16 11/24/17 [Vitamin B-12] Acetaminophen [Tylenol] 325 - 650 mg PO Q4H PRN 02/28/16 11/24/17 Ascorbic Acid [Vitamin C] 500 mg PO DAILYWM 02/28/16 11/24/17 Ferrous Sulfate 325 mg PO DAILYWM 02/28/16 11/24/17 Folic Acid 1 mg PO DAILY 02/28/16 11/24/17 Lactobacillus Acidophilus 1 each PO BID PRN 02/16/17 11/24/17 [Acidophilus] Omeprazole 20 mg PO DAILY 02/16/17 11/24/17 Bisacodyl [Dulcolax] 1 tab PO DAILY PM PRN 11/11/17 11/24/17 Diphenoxylate/Atropine [Lomotil] 2 tab PO QID PRN 11/11/17 11/24/17 Nitrofurantoin Monohyd/M-Cryst 100 mg PO DAILY 11/11/17 11/24/17 [Macrobid 100 mg Capsule] Nystatin 1 applic TOP DAILY PRN MDD under 11/11/17 11/24/17 breast Ondansetron [Zuplenz] 4 mg PO Q6HR PRN 11/11/17 11/24/17 Diphenhydramine HCl [Nighttime 50 mg PO QPM PRN 11/24/17 11/24/17 Sleep Aid] - Allergies Allergies/Adverse Reactions: Allergies Allergy/AdvReac Type Severity Reaction Status Date / Time No Known Drug Allergies Allergy Verified 09/11/17 06:12 Review of Systems - Constitutional Constitutional: reports: Weight loss (169 lbs on 11/07. Baseline was 185 lbs in Jul 2017.). denies: Fever, Chills - Ears, Nose & Throat Ears, Nose & Throat: denies: Hearing loss - Gastrointestinal Gastrointestinal: reports: Constipation (loose stools), Good appetite - Genitourinary Genitourinary: reports: Dysuria - Musculoskeletal Musculoskeletal: reports: Muscle weakness - Neurological Neurological: reports: General weakness, Memory problems - Psychiatric Psychiatric: reports: Depression (chronic) Physical Exam - Vital Signs Temperature: 96.7 F Pulse Rate: 67 O2 Saturation: 99 (room air) Blood Pressure: 150/85 - Physical Exam General Appearance: positive: No acute distress, Alert Eyes Bilateral: positive: EOMI, No lid inflammation, Conjunctivae nml, No scleral icterus ENT: positive: No signs of dehydration Neck: positive: No JVD, Trachea midline Cardiovascular: positive: Regular rate & rhythm, No murmur Respiratory: positive: Chest non-tender, No respiratory distress, Other. negative: Rales Skin: positive: Pallor, Dryness Extremities: positive: Pedal edema (mild) Neurologic/Psychiatric: positive: Oriented x3, Mood/affect nml, Weakness Palliative Care - POLST Patient has POLST: Yes POLST Status: DNR, Selective Treatment - Palliative Care Discussion: Reviewed POLST, originally signed February 2017, and made no changes. She confirmed her goals of care are comfort-focused and she wants to avoid hospitalization. She had no questions or concerns about surgery consult, but did want to know who the surgeon was and that the surgery wouldn't be in [place], "too far away. " Impression and Recommendations - Palliative Care Impression: This is an 82-year-old woman who has diverticulitis and a colovesical fistula, along with multiple comorbidities including CHF, COPD, atrial fibrillation, hypertension, and active alcoholism. She has multiple times changed her mind about going ahead with surgical intervention for the fistula, currently she is in agreement with that and plans to go to the surgery consultation recently rescheduled to 12/08/17. Palliative care can help navigate and further define goals of care, and will help facilitate further follow-up with surgeons. Recommendations/Counseling Done: Dysuria: Patient reports her dysuria is at baseline, with burning and discomfort with urination. She is on ongoing macrobid 100mg daily. Bactrim was completed 11/20. Acute on chronic pain: PCP just DC'd the oxycodone yesterday due to patient's active alcoholism. Tylenol is currently the only pain medication on board, apart from the illicit alcohol the patient has access to. She has a standing order for 12 oz beer, or 4 oz wine or 1.5 oz liquor as needed, which not been administered so far this month, according to the MAR. Nursing tries to track down the patient's hidden supplies, and also to prevent her from obtaining alcohol on her own, without complete success. They anticipate she will attempt to increase alcohol consumption to control her pain, due to loss of opioids. Advanced care planning: Today she is planning to go forward with surgery, or at least the surgery consultation, but has repeatedly changed her mind. New consultation date is 12/08/17, facility nursing will coordinate transport to the appointment; last time the family did, and she missed her appointment. Further clarification of goals are still needed. Time Spent: 15 minutes were spent with more than 50% of the time spent on counseling, education, and coordination of care.
== END 2017-11-24 16:04 | disposition home or self-care (01) ==
LOC: PC 16:03
PROVIDERS: ATTEND Nurse Practitioner
DX: Z51.5 Encounter for palliative care (principal); R30.0 Dysuria; R52 Pain, unspecified; K57.92 Diverticulitis of intestine, part unspecified, without perforation or abscess without bleeding; N32.1 Vesicointestinal fistula; I11.0 Hypertensive heart disease with heart failure; I50.9 Heart failure, unspecified; I48.91 Unspecified atrial fibrillation; J44.9 Chronic obstructive pulmonary disease, unspecified; F10.20 Alcohol dependence, uncomplicated; G62.9 Polyneuropathy, unspecified; Z66 Do not resuscitate

== ENCOUNTER 2018-01-03 11:58 | Day surgery (SDC) | payer MEDICARE ==
[2018-01-03] MEDS ORDERED: LACTATED RINGERS 1,000 ML IV ONE ×2 (12:38→15:07)
[2018-01-03] MEDS ORDERED: PROPOFOL 1000 MG/100 ML IV ONE (16:00)
[2018-01-03 16:25] VITALS: BP 177/92
== END 2018-01-03 11:59 | disposition home or self-care (01) ==
LOC: SDS 11:58
PROVIDERS: ATTEND Surgery
PROC: 0DJD8ZZ Inspection of Lower Intestinal Tract, Via Natural or Artificial Opening Endoscopic (ICD-10-PCS; principal; 2018-01-03 13:30)
DX: K57.30 Diverticulosis of large intestine without perforation or abscess without bleeding (principal); K64.8 Other hemorrhoids; E11.9 Type 2 diabetes mellitus without complications; F32.9 Major depressive disorder, single episode, unspecified; Z87.891 Personal history of nicotine dependence; K21.9 Gastro-esophageal reflux disease without esophagitis; I10 Essential (primary) hypertension
CPT/HCPCS: 45378; J7120

== ENCOUNTER 2018-01-16 13:20 | Outpatient (CLI) | payer MEDICARE ==
--- NOTE | 2018-01-16 18:10 | CONSULTATION NOTE ---
Palliative Care Follow Up - Referral Referring Provider: Dr Chow Time of Visit: 01/16/2018. 13:20 - 14:20 Referral setting: Home (Seen in home setting due to taxing and considerable effort required to leave the home due to colovesical fistula and urinary/fecal leakage.) Referral Reason: Pelvic pain / UTI - Information Sources Records reviewed: Previous records reviewed History/Review of Systems obtained from: Patient, Nursing Exam limitations: Clinical condition (patient with some memory deficits) - History of Present Illness Update Brief HPI Update: -82-year-old woman with chronic, recurrent UTIs secondary to a severe colovesical fistula. -Medical history: Colovesical fistula, recurrent UTIs, long history of alcohol abuse, currently actively alcoholic, HTN, peripheral neuropathy, GERD, diverticulitis IBS, incontinence, depression, osteoarthritis, osteoporosis, history of appendectomy, history of colonoscopy, hip replacement, knee replacement. -This morning she woke up complaining of increased burning with urination, increasingly frequent urination, and sharp, increased pelvic pain. -Current level of tramadol (50mg TID prn) is not controlling the pain. -Patient underwent exploratory colonoscopy on 01/03 with surgeon, Dr Farrar. -Moderate diverticulosis noted throughout entire examined colon and severe diverticulosis noted in sigmoid colon. -Colovesical fistual could NOT be seen with certainty, but due to findings almost certainly exists 30cm from anal verge. -Cause of of fistula is diverticular and not malignancy. -Surgery can proceed. -Surgeon is on holiday for 3 weeks, so pre-op consultation is delayed until at least mid-January. -After her consultation with surgeon, patient states that she wants to go ahead with the surgery. -Today she reiterates her intention to do so: "I don't want to live like this." -We discussed that for best results, she must stop drinking alcohol completely leading up to the surgery. -Patient is quite agreeable with this. -Nursing staff reports that she is usually agreeable to "not drinking," goes along with signing the facility's agreements to that effect, but continues to drink, stashes alcohol in place they can't find, etc. -She reports weight loss, "doesn't feel like eating," related to pain from fistula and alcohol intake. Social History - Living Situation Living arrangement: Assisted living ([facility]) Living Situation: Alone, With caregiver(s) (In the facility) Support System: Patient was 3 years ago. She and her lived in [facility], and moved together to [place] in [place]. She moved to [facility] after he . She has two adult daughters, one lives in [place], the other in [place]. Nursing reports they have "marimar parties" with her when they visit. Medications/Allergies - Medications Home Medications: Ambulatory Orders Medication Instructions Recorded Confirmed Citalopram [CeleXA] 40 mg PO DAILY 01/19/15 01/03/18 Lisinopril 10 mg PO DAILY 01/19/15 01/03/18 Cholecalciferol (Vitamin D3) 2,000 unit PO DAILY 01/24/16 12/28/17 [Vitamin D3] Cyanocobalamin (Vitamin B-12) 1,000 mcg PO DAILY 01/24/16 01/03/18 [Vitamin B-12] Acetaminophen [Tylenol] 325 - 650 mg PO Q4H PRN 02/28/16 12/28/17 Ascorbic Acid [Vitamin C] 500 mg PO DAILYWM 02/28/16 01/03/18 Ferrous Sulfate 325 mg PO DAILYWM 02/28/16 01/03/18 Folic Acid 1 mg PO DAILY 02/28/16 01/03/18 Lactobacillus Acidophilus 1 each PO BID 02/16/17 01/03/18 [Acidophilus] Omeprazole 20 mg PO DAILY 02/16/17 01/03/18 Bisacodyl [Dulcolax] 1 tab PO DAILY PM PRN 11/11/17 01/03/18 Nitrofurantoin Monohyd/M-Cryst 100 mg PO DAILY 11/11/17 01/03/18 [Macrobid 100 mg Capsule] Nystatin 1 applic TOP DAILY PRN MDD under 11/11/17 12/28/17 breast Diphenhydramine HCl [Nighttime 50 mg PO QPM PRN 11/24/17 12/28/17 Sleep Aid] Diphenoxylate/Atropine [Lomotil] 2 each PO QID PRN 12/28/17 12/28/17 Tramadol HCl 50 mg PO QID PRN MDD 400 mg. Give 12/28/17 01/16/18 50mg for pain 1-5 Sulfamethox/Trimeth 800/160 1 tab PO BID MDD for 10 days 01/16/18 01/16/18 [Bactrim Ds] Tramadol HCl 100 mg PO QID PRN MDD 400mg. Give 01/16/18 01/16/18 100mg for pain6-10 - Allergies Allergies/Adverse Reactions: Allergies Allergy/AdvReac Type Severity Reaction Status Date / Time No Known Drug Allergies Allergy Verified 12/28/17 11:07 Review of Systems - Constitutional Constitutional: reports: Weight loss (Loss of about 20 lbs since July. 164 lbs 12/26/17. 169 lbs 11/07/17. Baseline weight was 185 lbs July 2017.). denies: Fever, Chills, Poor appetite, Diaphoresis - Eyes Eyes: reports: Corrective lenses - Ears, Nose & Throat Ears, Nose & Throat: denies: Hearing loss - Cardiovascular Cardiovascular: reports: Decr. exercise tolerance. denies: Palpitations, Chest pain - Respiratory Respiratory: denies: SOB at rest - Gastrointestinal Gastrointestinal: denies: Constipation, Nausea, Vomiting - Genitourinary Genitourinary: reports: Dysuria, Frequency, Incontinence, Other (Fecal leakage) - Psychiatric Psychiatric: denies: Depression - Hematologic/Lymphatic Hematologic/Lymphatic: reports: Recurrent infections (UTIs.) Physical Exam - Vital Signs Temperature: 97.5 F Pulse Rate: 62 O2 Saturation: 99 (room air) Blood Pressure: 130/85 - Physical Exam General Appearance: positive: No acute distress, Alert Eyes Bilateral: positive: EOMI, No lid inflammation, Conjunctivae nml, No scleral icterus ENT: positive: No signs of dehydration Neck: positive: No JVD, Trachea midline Cardiovascular: positive: Regular rate & rhythm Respiratory: positive: Chest non-tender, No respiratory distress, Breath sounds nml Abdomen: positive: Non-tender, Soft, Abnml bowel sounds (hypoactive), Obese Extremities: positive: Nml appearance, Pedal edema (1+) Neurologic/Psychiatric: positive: Oriented x3, Mood/affect nml Palliative Care - POLST Patient has POLST: Yes POLST Status: DNR, Selective Treatment Pain: Location (suprapelvic; stinging/burning at urethra), Severity (episodes of 8-10) Sleep: Sleeps poorly (Insomnia worse with increased pain) Impression and Recommendations - Palliative Care Impression: This is an 82-year-old woman with acute on chronic pelvic pain due to a UTI secondary to colovesical fistula. She has recently had an exploratory colonoscopy, consulted with the surgeon, and intends to go forward with the fistula repair surgery. The surgeon is out of town for the next few weeks, so pre-op consultation will occur in mid to late January. Will titrate pain medications and start empiric antibiotics for UTI. Palliative care will continue to monitor and support as needed. Recommendations/Counseling Done: UTI: Start empiric Bactrim DS BID x 10 days. Monitor for response. Neither clean catch nor catheterization feasible due to fecal matter in bladder. She is still on macrobid 100 mg as prophylactic. Patient continues to drink cranberry juice. Increase nursing check-in's to every hour instead of every 2 hours until the antibiotics kick in, to monitor for sepsis. Pain, pelvic: Stop tramadol 50mg TID as needed. Start Tramadol 50mg tabs: 50mg as needed 4x/day for 1-5 pain, and 100mg as needed 4x/day for 6-10 pain. 400mg max per 24 hours. Monitor response to increased pain regimen; if inadequate, consider short course of oxycodone; PCP had DC'd it in November due to patient's active alcoholism. Also continue Tylenol 650mg Q4hr as needed. Insomnia: Chronic, but worsened with UTI pain. Monitor for improvement with titration of pain meds. Continue diphenhydramine QHS as needed. Weight loss/anorexia: Related to alcohol intake and increased pain levels. Monitor for improvement with increased pain control, suggest Ensure to supplement when she skips meals. Colovesical fistula: Exploratory colonscopy completed 01/03/18. Nursing will follow up with surgeon's office regarding pre-op consultation, hopefully to schedule it mid-to-end January. Patient reports she intends to go through with the surgery. She verbalizes agreement with stopping alcohol from now until surgery. High probability she won't follow through. Advanced care planning: POLST is DNR, selective treatment, and no updates: wants to avoid hospitalization, is willing to follow through with surgery, at least for now. Follow up in a few days on pain and antibiotic reaction. Time Spent: 60 minutes were spent with more than 50% of the time spent on counseling, education, and coordination of care.
== END 2018-01-16 13:21 | disposition home or self-care (01) ==
LOC: PC 13:20
PROVIDERS: ATTEND Nurse Practitioner
DX: Z51.5 Encounter for palliative care (principal); N39.0 Urinary tract infection, site not specified; N32.1 Vesicointestinal fistula; K57.80 Diverticulitis of intestine, part unspecified, with perforation and abscess without bleeding; F10.20 Alcohol dependence, uncomplicated; K58.9 Irritable bowel syndrome, unspecified; I50.32 Chronic diastolic (congestive) heart failure; J44.9 Chronic obstructive pulmonary disease, unspecified; G47.00 Insomnia, unspecified; R63.0 Anorexia; R63.4 Abnormal weight loss; R32 Unspecified urinary incontinence; G62.9 Polyneuropathy, unspecified; M19.90 Unspecified osteoarthritis, unspecified site; M81.0 Age-related osteoporosis without current pathological fracture; Z66 Do not resuscitate; Z96.649 Presence of unspecified artificial hip joint; Z96.659 Presence of unspecified artificial knee joint
CPT/HCPCS: 99350

== ENCOUNTER 2018-01-19 18:00 | Outpatient (CLI) | payer MEDICARE | END 2018-01-19 18:01 | disposition critical access hospital (66) | LOC: EMS 18:00 | PROVIDERS: ATTEND Surgery | DX: M25.512 Pain in left shoulder (principal); W01.0XXA Fall on same level from slipping, tripping and stumbling without subsequent striking against object, initial encounter; Y92.099 Unspecified place in other non-institutional residence as the place of occurrence of the external cause | CPT/HCPCS: A0425; A0429 ==

== ENCOUNTER 2018-01-19 18:15 | Emergency (ER) | payer MEDICARE ==
--- NOTE | 2018-01-19 18:21 | ED Physician Documentation ---
PD HPI Fall - Stated complaint Stated Complaint: L SHOULDER PAIN - History obtained from History obtained from: Patient, EMS - History of Present Illness Mechanism of injury: Tripped Fall distance: Standing position Where injury occurred: Home ([facility]) Timing - onset: Today (She got tripped up on her shoes and fell to her left side catching everything on her left shoulder. No other injuries. No head or hip injury. She is able to walk and bear weight. She declines pain medication. ) Review of Systems Constitutional: reports: Reviewed and negative Cardiac: denies: Chest pain / pressure Respiratory: denies: Dyspnea, Cough GI: denies: Abdominal Pain, Nausea, Vomiting PD PAST MEDICAL HISTORY - Past Medical History Cardiovascular: Congestive heart failure, Hypertension, High cholesterol, Atrial fibrillation Respiratory: COPD Endocrine/Autoimmune: Type 2 diabetes GI: GERD, Chronic diarrhea, Diverticulitis, Other : Incontinence, Chronic bladder infection, Other Psych: Depression Musculoskeletal: Osteoarthritis, Osteoporosis Derm: None - Past Surgical History Past Surgical History: Yes General: Appendectomy, Hiatal hernia repair, Colonoscopy Ortho: Hip replacement, Knee replacement, Other /OPERATING ROOM ORDERLY: Other HEENT: Cataracts - Present Medications Home Medications: Ambulatory Orders Medication Instructions Recorded Confirmed Citalopram [CeleXA] 40 mg PO DAILY 01/19/15 01/03/18 Lisinopril 10 mg PO DAILY 01/19/15 01/03/18 Cholecalciferol (Vitamin D3) 2,000 unit PO DAILY 01/24/16 12/28/17 [Vitamin D3] Cyanocobalamin (Vitamin B-12) 1,000 mcg PO DAILY 01/24/16 01/03/18 [Vitamin B-12] Acetaminophen [Tylenol] 325 - 650 mg PO Q4H PRN 02/28/16 12/28/17 Ascorbic Acid [Vitamin C] 500 mg PO DAILYWM 02/28/16 01/03/18 Ferrous Sulfate 325 mg PO DAILYWM 02/28/16 01/03/18 Folic Acid 1 mg PO DAILY 02/28/16 01/03/18 Lactobacillus Acidophilus 1 each PO BID 02/16/17 01/03/18 [Acidophilus] Omeprazole 20 mg PO DAILY 02/16/17 01/03/18 Bisacodyl [Dulcolax] 1 tab PO DAILY PM PRN 11/11/17 01/03/18 Nitrofurantoin Monohyd/M-Cryst 100 mg PO DAILY 11/11/17 01/03/18 [Macrobid 100 mg Capsule] Nystatin 1 applic TOP DAILY PRN MDD under 11/11/17 12/28/17 breast Diphenhydramine HCl [Nighttime 50 mg PO QPM PRN 11/24/17 12/28/17 Sleep Aid] Diphenoxylate/Atropine [Lomotil] 2 each PO QID PRN 12/28/17 12/28/17 Tramadol HCl 50 mg PO QID PRN MDD 400 mg. Give 12/28/17 01/16/18 50mg for pain 1-5 Sulfamethox/Trimeth 800/160 1 tab PO BID MDD for 10 days 01/16/18 01/16/18 [Bactrim Ds] Tramadol HCl 100 mg PO QID PRN MDD 400mg. Give 01/16/18 01/16/18 100mg for pain6-10 - Allergies Allergies/Adverse Reactions: Allergies Allergy/AdvReac Type Severity Reaction Status Date / Time No Known Drug Allergies Allergy Verified 12/28/17 11:07 - Social History Does the pt smoke?: No Smoking Status: Never smoker Does the pt drink ETOH?: Yes Does the pt have substance abuse?: No - Immunizations Immunizations are current?: Yes - POLST Patient has POLST: Yes POLST Status: DNR PD ED PE NORMAL - Vitals Vital signs reviewed: Yes - General General: Alert and oriented X 3, No acute distress - HEENT HEENT: PERRL, EOMI - Neck Neck: Supple, no meningeal sign, No bony TTP - Derm Derm: Normal color, Warm and dry - Extremities Extremities: Other (Tender over the upper humerus on the left with no range of motion, no elbow, clavicular, or hand tenderness. 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 The remainder of her extremities are palpated and nontender.) - Neuro Neuro: Alert and oriented X 3, Normal speech Results - Vitals Vitals: Vital Signs - 24 hr 01/19/18 18:17 Temperature 36.6 C Heart Rate 62 Respiratory 16 Rate Blood Pressure 94/55 L O2 Saturation 95 Oxygen O2 Source [With Activity] Room air O2 Source [Without Activity] Room air O2 Source Room air - Rads (name of study) X-rays left shoulder and humerus Radiology: EMP read contemporaneously (Normal) PD MEDICAL DECISION MAKING - Sepsis Event Vital Signs: Vital Signs - 24 hr 01/19/18 18:17 Temperature 36.6 C Heart Rate 62 Respiratory 16 Rate Blood Pressure 94/55 L O2 Saturation 95 Oxygen O2 Source [With Activity] Room air O2 Source [Without Activity] Room air O2 Source Room air Departure - Departure Disposition: 01 Home, Self Care Clinical Impression: Contusion of left shoulder Qualifiers: Encounter type: initial encounter Qualified Code(s): S40.012A - Contusion of left shoulder, initial encounter Condition: Good Record reviewed to determine appropriate education?: Yes Instructions: ED Contusion Shoulder Comments: Continue tramadol as needed for pain, wear the sling as needed but not for more than a few days constantly after that try to move your shoulder around and discontinue the use of the sling. Follow-up with your doctor in 1 week if not better.
--- NOTE | 2018-01-19 19:08 | XRAY Preliminary Report ---
Exam: XR HUMERUS LT IMPRESSION: No fracture. [facility] SITE ID: [id number]
--- NOTE | 2018-01-19 19:08 | XRAY Report ---
EXAM: LEFT HUMERUS RADIOGRAPHY EXAM DATE: 01/19/2018 06:53 PM. CLINICAL HISTORY: Fall with pain COMPARISON: None. TECHNIQUE: 2 views. FINDINGS: Bones: No fracture or focal bony destructive process. Joints: Alignment appears within normal limits on the submitted images Soft Tissues: Normal. No soft tissue swelling. IMPRESSION: No fracture. [facility] Referring Provider Line: [phone] SITE ID: [id number]
--- NOTE | 2018-01-19 19:12 | XRAY Report ---
EXAM: LEFT SHOULDER RADIOGRAPHY EXAM DATE: 01/19/2018 06:54 PM. CLINICAL HISTORY: Injury with pain COMPARISON: None. TECHNIQUE: 4 views. FINDINGS: Bones: No acute fracture or bony destruction. Joints: The glenohumeral and acromioclavicular joints are normal. Soft tissues: There is atherosclerotic aortic calcification. Negative for left pneumothorax. IMPRESSION: No acute fracture or subluxation. [facility] Referring Provider Line: [phone] SITE ID: [id number]
--- NOTE | 2018-01-19 19:12 | XRAY Preliminary Report ---
Exam: XR SHOULDER 3 VIEW LT IMPRESSION: No acute fracture or subluxation. [facility] SITE ID: [id number]
[2018-01-19] MEDS ORDERED: HYDROcod/ACETAM 5/325 MG TABLET PO STA (19:34)
[2018-01-19 19:54] VITALS: BP 123/68
== END 2018-01-19 20:19 | disposition home or self-care (01) ==
LOC: EDUNIT# → ED 18:15
DX: S40.012A Contusion of left shoulder, initial encounter (principal); W01.0XXA Fall on same level from slipping, tripping and stumbling without subsequent striking against object, initial encounter; Y92.199 Unspecified place in other specified residential institution as the place of occurrence of the external cause; I11.0 Hypertensive heart disease with heart failure; I50.9 Heart failure, unspecified; I48.91 Unspecified atrial fibrillation; J44.9 Chronic obstructive pulmonary disease, unspecified; E11.9 Type 2 diabetes mellitus without complications; Z96.659 Presence of unspecified artificial knee joint; Z96.649 Presence of unspecified artificial hip joint
CPT/HCPCS: 73030; 73060; 99283; A9270

== ENCOUNTER 2018-03-02 13:35 | Outpatient (CLI) | payer MEDICARE ==
[2018-03-02 14:16] LABS: BASOPHILS # (AUTO) 0.1 10^3/uL (0.0-0.1); EOSINOPHILS # (AUTO) 0.1 10^3/uL (0.0-0.7); EOSINOPHILS % (AUTO) 0.8 %; HGB - HEMOGLOBIN 12.4 g/dL (12.0-16.0); LYMPHOCYTES # (AUTO) 2.3 10^3/uL (1.5-3.5); LYMPHOCYTES % (AUTO) 26.8 %; MEAN CORPUSCULAR HEMOGLOBIN 31.2 pg (27.0-31.0); MEAN CORPUSCULAR HGB CONC 33.3 g/dL (32.0-36.0); MEAN CORPUSCULAR VOLUME 93.6 fL (81.0-99.0); MEAN PLATELET VOLUME 7.8 fL (7.9-10.8); MONOCYTES # (AUTO) 0.9 10^3/uL (0.0-1.0); MONOCYTES % (AUTO) 10.5 %; NEUTROPHILS # (AUTO) 5.3 10^3/uL (1.5-6.6); NEUTROPHILS % (AUTO) 60.9 %; PLT - PLATELET COUNT 350 10^3/uL (130-450); RED BLOOD COUNT 3.96 10^6/uL (4.20-5.40); RED CELL DISTRIBUTION WIDTH 14.2 % (12.0-15.0); WHITE BLOOD COUNT 8.8 x10^3/uL (4.8-10.8)
[2018-03-02 14:28] LABS: ALBUMIN 3.3 g/dL (3.2-5.5); ALBUMIN/GLOBULIN RATIO 0.9 (1.0-2.2); ALKALINE PHOSPHATASE 74 IU/L (42-121); ALT ALANINE AMINOTRANSFERASE < 10 IU/L (10-60); AST ASPARTATE AMINOTRANSFERASE 12 IU/L (10-42); BILIRUBIN,TOTAL 0.9 mg/dL (0.2-1.0); BUN - BLOOD UREA NITROGEN 10 mg/dL (6-20); CARBON DIOXIDE - CO2 27 mmol/L (21-32); CHLORIDE 100 mmol/L (101-111); CREATININE 0.5 mg/dL (0.4-1.0); GFR - MDRD 118 (>89); GLUCOSE 109 mg/dL (70-100); SODIUM 134 mmol/L (135-145); TOTAL PROTEIN 7.1 g/dL (6.7-8.2)
== END 2018-03-02 13:36 | disposition home or self-care (01) ==
LOC: LAB 13:35
PROVIDERS: ATTEND Nurse Anesthetist, Certified Registered
DX: Z01.810 Encounter for preprocedural cardiovascular examination (principal); Z01.812 Encounter for preprocedural laboratory examination; K63.2 Fistula of intestine
CPT/HCPCS: 36415; 80053; 85025; 86850; 86900; 86901; 93005

== ENCOUNTER 2018-03-03 06:17 | Inpatient (IN) | payer MEDICARE ==
[2018-03-03] MEDS ORDERED: LACTATED RINGERS 1,000 ML IV ONE ×2 (07:10→10:58)
[2018-03-03] MEDS ORDERED: ONDANSETRON 4 MG/2 ML VIAL IVP PRN ×2 (08:15→11:56)
[2018-03-03] MEDS ORDERED: fent/BUPIV 2 MCG/0.125% 250 ML EP PRN ×2 (08:15→11:56)
[2018-03-03] MEDS ORDERED: diphenhydrAMINE INJ 50 MG/ML VIAL IVP PRN (08:15)
[2018-03-03] MEDS ORDERED: NALBUPHINE 10 MG/ML AMP IVP PRN ×2 (08:15→11:56)
[2018-03-03] MEDS ORDERED: fent/BUPIV 2 MCG/0.125% 250 ML EP ONE (08:46)
[2018-03-03] MEDS ORDERED: DEXAMETHASONE 4 MG/ML VIAL IVP ONE (10:30)
[2018-03-03] MEDS ORDERED: GLYCOPYRROLATE 1 MG/5 ML VIAL IVP ONE (10:30)
[2018-03-03] MEDS ORDERED: SODIUM CHLORIDE 0.9% 100 ML BAG IV ONE (10:30)
[2018-03-03] MEDS ORDERED: SODIUM CHLORIDE 0.9% 100ML 100 ML IV ONE (10:30)
[2018-03-03] MEDS ORDERED: NEOSTIGMINE 1 MG/1 ML 10 ML MDV IVP ONE (10:30)
[2018-03-03] MEDS ORDERED: PROPOFOL 200 MG/20 ML VIAL IVP ONE (10:30)
[2018-03-03] MEDS ORDERED: VECURONIUM 10 MG VIAL IVP ONE (10:30)
[2018-03-03] MEDS ORDERED: PHENYLEPHRINE 50 MG/5 ML VIAL IV ONE (10:30)
[2018-03-03] MEDS ORDERED: fentaNYL 100 MCG/2 ML VIAL IVP ONE (10:30)
[2018-03-03] MEDS ORDERED: ONDANSETRON 4 MG/2 ML VIAL IVP ONE (10:30)
[2018-03-03] MEDS ORDERED: SODIUM CHLORIDE FLUSH 0.9% 10 ML SYRINGE IVP PRN (11:09)
--- NOTE | 2018-03-03 11:27 | OPERATIVE REPORT ---
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) Procedure Performed: Sigmoidectomy with takedown of colovesicular fistula Post Op Diagnosis: Same - Procedure Note Primary Surgeon: Yuri Farrar MD Secondary Surgeon: Agustin Nur MD Anesthesia Provider: Bren Vincent CRNA Anesthesia Technique: Epidural, General ET tube IV Fluids (mL): 1,300 Estimated Blood Loss (mL): 200 Urine Output (mL): 75 Drain/Tube Type: Tramaine drain (19 Malaysian directed into the pelvis near the colovesicular fistula site) Complications: None - Other Other Information/Narrative: OPERATIVE DESCRIPTION/REPORT: After verbal and written informed consent was obtained detailing the risks of infection, bleeding requiring transfusion with its risks, nerve injury, and , and after I met with the patient confirming the surgery and the site of the surgery, the patient was brought to the operative suite and placed supine on the operating table. Great care was taken to avoid pressure points to prevent pressure necrosis or nerve injury. Monitoring devices were applied along with TEDs and pneumatic compressive stockings (to prevent DVT). The patient received preoperative antibiotics for surgical prophylaxis. Bren Vincent CRNA placed an epidural catheter for long-term pain control and then sedated and anethetized the patient for the entire procedure. The patient was prepped and draped in the usual sterile manner. With the patient draped my initials were clearly visible. A "time in" then confirmed that the paitient was identified with 3 identifiers (name, birthdate and medical record number), the history and physical was in the chart, the signed consent confirming the procedure was in the chart, the patient was in the correct position, the aforementioned prophylactic measures were in place or given, we had the correct personel and equipment to complete the procedure and that anesthesia, surgery and nursing were given an opportunuty to express any concerns. With the agreement of everyone in the room, we proceeded with the operation. A midline incision was made infraumbilically and taken down to the fascia. The incision extended from above the umbilicus to above the pubic tubercle. Once this was taken down to the fascia, the fascia and peritoneum were opened without incident or difficulty. A Bookwalter retractor was placed to aid in visualization and retraction. The sigmoid colon was markedly redundant. The sigmoid colon was examined and marked scarring was noted between the mid sigmoid colon in the left lateral abdominal wall as well as to the dome of the bladder. To detail this further the recto-sigmoid came out of the pelvis biased to the patient's right then folded down so that the mid sigmoid colon was involved in these dense diverticular adhesions and then the proximal sigmoid colon was relatively free against the left lateral abdominal wall. Dissection along the white line of Toldt freed the proximal sigmoid colon and this was continued inferiorly to free the adhesions of the mid sigmoid colon. The dissection was done primarily using Bovie electrocautery. The mid-sigmoid colon was selected as the proximal point of resection and a PHILLIP-75 stapler was used to transect the colon at this point. The mesentery was then taken sequentially using serial application of the LigaSure. When the mesenteric vessels were encountered these were suture-ligated using 2-0 Vicryl. The dissection continued down to the bladder until the rectosigmoid and sigmoid colon could be completely freed. The left ureter was not positively identified but the area of dissection suggested that we stayed well away from it. After dissecting beyond the mass and adhesion to the bladder, a PHILLIP-75 stapler was obtained and placed across the distal sigmoid and fired. The specimen was delivered from the operative field. It was clear that we had adequate length with the redundant colon. What was also clear was that the EEA stapler would not be able to complete an anastomosis at length and due to the turn at the pelvic brim. It was also evident was that there was not enough length to perform a stapled anastomosis. As such I opted to perform a handsewn anastomosis. After placing corner stitches, the posterior wall was anastomosed using full-thickness 2-0 Vicryl sutures. The anterior wall was then closed using full-thickness 2-0 Vicryl sutures. The anterior ramirez and further buttressed using 3-0 silk Lembert sutures. The back wall was not buttressed. Digital examination showed that the anastomosis was widely patent. The liver was palpably normal. The abdomen was copiously irrigated with warm saline. Due to the fact that the colon was technically entered when the colovesical fistula was taken down, I opted to place a 19 Malaysian Tramaine drain through the right inferior abdominal wall and directed down towards the pelvis just above the bladder. The drain was secured to the skin using a 3-0 nylon suture which was Etienne sandal about the drain. The fascia was closed using a 0 PDS in a running fashion. The fascial closure was started superiorly and inferiorly and run to meet in the middle. The knot was dunked. The subcutaneous tissues were copiously irrigated using warm sterile saline and meticulous hemostasis was obtained using Bovie electrocautery. The skin was approximated using skin mercy. At this point a time out was performed that confirmed that all the counts were correct, the procedure that was performed, the blood loss, the IV fluids administered, and the patients condition. A dressing was then applied. The [place] was to be left in place until it could be confirmed that there was no leak. Having tolerated the procedure well, the patient was taken to recovery room in good and stable condition. Dragon disclaimer: This document was created in part using voice recognition technology. Because of the inherent limitations of the system ([employer]'s Dragon Dictate user manual states that the licensee understands that speech recognition is a statistical process and that recognition errors are inherent in the process), occasional same sounding word substitutions and grammatical errors do occur and persist despite proofreading. Please read this document for context.
[2018-03-03] MEDS: D5NS W/20 MEQ KCL 1,000 ML IV SCH (12:49)
[2018-03-03] MEDS: PIPERACILLIN/TAZOBACTAM 3.375 GM in SODIUM CHLORIDE 0.9% MINIBAG 100 ML IV SCH ×2 (12:49→19:20)
[2018-03-03] MEDS: ACETAMINOPHEN 1,000 MG/100 ML 100 ML IV SCH ×3 (12:50→23:58)
[2018-03-03] MEDS ORDERED: SODIUM CHLORIDE 0.9% 500 ML IV ONE (14:42)
[2018-03-03] MEDS: SODIUM CHLORIDE FLUSH 0.9% 10 ML SYRINGE IVP SCH ×2 (17:49→23:59)
[2018-03-04] MEDS: D5NS W/20 MEQ KCL 1,000 ML IV SCH ×2 (00:05→11:49)
[2018-03-04] MEDS: PIPERACILLIN/TAZOBACTAM 3.375 GM in SODIUM CHLORIDE 0.9% MINIBAG 100 ML IV SCH ×4 (00:19→18:33)
[2018-03-04] MEDS: ACETAMINOPHEN 1,000 MG/100 ML 100 ML IV SCH ×4 (05:47→19:19)
[2018-03-04 06:53] LABS: BASOPHILS % (AUTO) 0.1 %; HGB - HEMOGLOBIN 10.9 g/dL (12.0-16.0); LYMPHOCYTES # (AUTO) 1.1 10^3/uL (1.5-3.5); LYMPHOCYTES % (AUTO) 11.6 %; MEAN CORPUSCULAR HEMOGLOBIN 32.1 pg (27.0-31.0); MEAN CORPUSCULAR HGB CONC 33.1 g/dL (32.0-36.0); MEAN PLATELET VOLUME 7.8 fL (7.9-10.8); MONOCYTES # (AUTO) 0.6 10^3/uL (0.0-1.0); MONOCYTES % (AUTO) 5.9 %; NEUTROPHILS # (AUTO) 7.7 10^3/uL (1.5-6.6); NEUTROPHILS % (AUTO) 82.4 %; PLT - PLATELET COUNT 306 10^3/uL (130-450); RED BLOOD COUNT 3.39 10^6/uL (4.20-5.40); RED CELL DISTRIBUTION WIDTH 14.9 % (12.0-15.0); WHITE BLOOD COUNT 9.4 x10^3/uL (4.8-10.8)
[2018-03-04 07:07] LABS: ALBUMIN 2.4 g/dL (3.2-5.5); ALBUMIN/GLOBULIN RATIO 0.8 (1.0-2.2); ALKALINE PHOSPHATASE 54 IU/L (42-121); ALT ALANINE AMINOTRANSFERASE < 10 IU/L (10-60); AST ASPARTATE AMINOTRANSFERASE 14 IU/L (10-42); BILIRUBIN,TOTAL 0.6 mg/dL (0.2-1.0); BUN - BLOOD UREA NITROGEN 9 mg/dL (6-20); CARBON DIOXIDE - CO2 23 mmol/L (21-32); CHLORIDE 105 mmol/L (101-111); CREATININE 0.5 mg/dL (0.4-1.0); GFR - MDRD 118 (>89); GLUCOSE 159 mg/dL (70-100); SODIUM 135 mmol/L (135-145); TOTAL PROTEIN 5.6 g/dL (6.7-8.2)
--- NOTE | 2018-03-04 10:04 | PROVIDER PROGRESS NOTE ---
Subjective - Prog Note Date Prog Note Date: 03/04/18 - Subjective Subjective: Patient reportedly has very minimal pain. No adverse events overnight. No nausea , no emesis. No bowel function. Objective - Vital Signs/Intake & Output Reviewed Vital Signs: Yes Vital Signs: Vital Signs x48h Temp Pulse Resp BP Pulse Ox 03/04/18 08:37 36.5 C 66 20 139/72 H 99 03/04/18 08:00 36.5 C 66 20 139/72 H 99 03/04/18 04:00 36.4 C L 68 16 148/79 H 97 Intake & Output: Intake & Output 03/01/18 03/02/18 03/03/18 03/04/18 23:59 23:59 23:59 23:59 Intake Total 1900 400 Output Total 525 490 Balance 1375 -90 - Objective General Appearance: positive: No acute distress Respiratory: positive: No respiratory distress, Breath sounds nml Cardiovascular: positive: Regular rate & rhythm Abdomen: positive: Non-tender, No distention, Other (YELITZA in place with minimal serosanguinous drainage. Dressing CDI.) Extremities: positive: No pedal edema - Lab Results Fish Bones: 03/04/18 06:04 03/04/18 06:04 Other Labs: Lab Results x24hrs 03/04/18 03/04/18 Range/Units 06:04 06:04 WBC 9.4 (4.8-10.8) x10^3/uL RBC 3.39 L (4.20-5.40) 10^6/uL Hgb 10.9 L (12.0-16.0) g/dL Hct 32.9 L (37.0-47.0) % MCV 97.0 (81.0-99.0) fL MCH 32.1 H (27.0-31.0) pg MCHC 33.1 (32.0-36.0) g/dL RDW 14.9 (12.0-15.0) % Plt Count 306 (130-450) 10^3/uL MPV 7.8 L (7.9-10.8) fL Neut # (Auto) 7.7 H (1.5-6.6) 10^3/uL Lymph # (Auto) 1.1 L (1.5-3.5) 10^3/uL Sac # (Auto) 0.6 (0.0-1.0) 10^3/uL Eos # (Auto) 0.0 (0.0-0.7) 10^3/uL Baso # (Auto) 0.0 (0.0-0.1) 10^3/uL Absolute Nucleated RBC 0.00 x10^3/uL Nucleated RBC % 0.0 /100WBC Sodium 135 (135-145) mmol/L Potassium 4.1 (3.5-5.0) mmol/L Chloride 105 (101-111) mmol/L Carbon Dioxide 23 (21-32) mmol/L Anion Gap 7.0 (6-13) BUN 9 (6-20) mg/dL Creatinine 0.5 (0.4-1.0) mg/dL Estimated GFR (MDRD) 118 (>89) Glucose 159 H (70-100) mg/dL Calcium 8.0 L (8.5-10.3) mg/dL Total Bilirubin 0.6 (0.2-1.0) mg/dL AST 14 (10-42) IU/L ALT < 10 L (10-60) IU/L Alkaline Phosphatase 54 (42-121) IU/L Total Protein 5.6 L (6.7-8.2) g/dL Albumin 2.4 L (3.2-5.5) g/dL Globulin 3.2 (2.1-4.2) g/dL Albumin/Globulin Ratio 0.8 L (1.0-2.2) Assessment/Plan - Problem List (1) History of open sigmoidectomy Impression: POD 1 Ambulate patient at lest to chair. If she tolerates recommend walking in halls. Continue epidural for pain control sips of clear liquids. Lovenox for DVT prophylaxis Leave tracy in place secondary to coloviscular fistula. Leave YELITZA in place for same
[2018-03-04] MEDS: SODIUM CHLORIDE FLUSH 0.9% 10 ML SYRINGE IVP SCH ×2 (10:22→16:47)
[2018-03-04] MEDS: ENOXAPARIN 40 MG/0.4 ML SYRINGE SUBQ SCH (10:22)
[2018-03-04] MEDS: LISINOPRIL 5 MG TABLET PO SCH (16:46)
[2018-03-05] MEDS: D5NS W/20 MEQ KCL 1,000 ML IV SCH ×3 (00:11→09:31)
[2018-03-05] MEDS: ACETAMINOPHEN 1,000 MG/100 ML 100 ML IV SCH ×4 (00:31→19:23)
[2018-03-05] MEDS: SODIUM CHLORIDE FLUSH 0.9% 10 ML SYRINGE IVP SCH ×3 (00:32→17:46)
[2018-03-05] MEDS: PIPERACILLIN/TAZOBACTAM 3.375 GM in SODIUM CHLORIDE 0.9% MINIBAG 100 ML IV SCH ×2 (01:27→05:35)
[2018-03-05 06:14] LABS: BASOPHILS % (AUTO) 0.4 %; EOSINOPHILS # (AUTO) 0.1 10^3/uL (0.0-0.7); EOSINOPHILS % (AUTO) 0.7 %; LYMPHOCYTES # (AUTO) 2.1 10^3/uL (1.5-3.5); LYMPHOCYTES % (AUTO) 25.6 %; MEAN CORPUSCULAR HEMOGLOBIN 31.7 pg (27.0-31.0); MEAN CORPUSCULAR HGB CONC 33.1 g/dL (32.0-36.0); MEAN CORPUSCULAR VOLUME 95.9 fL (81.0-99.0); MEAN PLATELET VOLUME 7.7 fL (7.9-10.8); MONOCYTES # (AUTO) 0.8 10^3/uL (0.0-1.0); MONOCYTES % (AUTO) 9.2 %; NEUTROPHILS # (AUTO) 5.2 10^3/uL (1.5-6.6); NEUTROPHILS % (AUTO) 64.1 %; PLT - PLATELET COUNT 302 10^3/uL (130-450); RED BLOOD COUNT 3.46 10^6/uL (4.20-5.40); WHITE BLOOD COUNT 8.1 x10^3/uL (4.8-10.8)
[2018-03-05 06:24] LABS: ALBUMIN 2.6 g/dL (3.2-5.5); ALBUMIN/GLOBULIN RATIO 0.8 (1.0-2.2); ALKALINE PHOSPHATASE 53 IU/L (42-121); ALT ALANINE AMINOTRANSFERASE < 10 IU/L (10-60); AST ASPARTATE AMINOTRANSFERASE 12 IU/L (10-42); BILIRUBIN,TOTAL 0.5 mg/dL (0.2-1.0); BUN - BLOOD UREA NITROGEN 7 mg/dL (6-20); CARBON DIOXIDE - CO2 22 mmol/L (21-32); CHLORIDE 107 mmol/L (101-111); CREATININE 0.5 mg/dL (0.4-1.0); GFR - MDRD 118 (>89); GLUCOSE 89 mg/dL (70-100); SODIUM 136 mmol/L (135-145)
[2018-03-05] MEDS: LISINOPRIL 5 MG TABLET PO SCH (07:04)
[2018-03-05] MEDS: ENOXAPARIN 40 MG/0.4 ML SYRINGE SUBQ SCH (08:09)
[2018-03-05] MEDS: oxyCODONE 5 MG TABLET PO PRN ×3 (09:29→17:34)
[2018-03-05] MEDS: POTASSIUM CHLORIDE 20 MEQ/15 ML UDC PO SCH (09:31)
--- NOTE | 2018-03-05 11:20 | ANESTHESIA PROCEDURE NOTE ---
Anesthesia Epidural Template - Patient Report Patient Reports: positive: Pain controlled - Exam Epidural Medication Information: Epidural Medications Medication 0.125 Bupibacane+2mg Fantanyl Continuous Infusion Rate (mL/ 6 hr) Demand Dose Setting 4 Infused Amount 104 - Plan Plan: positive: Other (Epidural discontinued by me per Dr. Tejada's request. Tip intact, site clear. Patient had good pain control and no observable complications at this time.)
[2018-03-05] MEDS ORDERED: LORazepam 2 MG/ML VIAL IVP PRN ×2 (11:30→17:36)
[2018-03-05] MEDS ORDERED: METOPROLOL 5 MG/5 ML VIAL IVP SCH (12:00)
--- NOTE | 2018-03-05 12:51 | POST OP PROGRESS NOTE ---
Subjective - General Admit Date: 03/03/18 Procedure Date: 03/03/18 Post Op Days: 2 Procedure Performed: sigmoidectomy - Review of Systems Wound/Incisions: positive: Other (dressing intact but lower portion has stool on exterior as patient has had BM while sitting in chair.) Drain Type: YELITZA Drain Output Description: serosanguinous Approximate mls Output: 60 General: positive: Weakness Pulmonary: negative: Shortness of breath Cardiovascular: positive: No symptoms Gastrointestinal: positive: Abdominal pain, Flatus. negative: Nausea, Vomiting Genitourinary: positive: No symptoms Psychiatric: positive: Anxiety - Other Other Information/Narrative: Patient has been increasingly hypertensive since yesterday evening. Her home Lisinopril was resumed, IV fluids decreased and a onetime does of IV lopressor administered. She did respond to the IV lopressor. Medical consultation obtained. Her epidural was removed this am. She is having mild to moderated abdominal pain and oral oxycodone was started. She ambulated in the halls yesterday and is having bowel movements. Surgery Impression Plan - Problem List (1) History of open sigmoidectomy Impression/Plan: POD 2 epidural removed and oral pain meds started diet advanced to soft med consult for persistent hypertension. Lorazepam PRN for possible EtOH withdraw. Dressing to be changed by RN today as the patient was sitting in chair and had a large BM when I went to evaluate her. Once she is cleaned up RN will change dressing. Continue tracy as patient had colovisicular fistula. YELITZA also to remain in place. Antibiotics discontinued.
[2018-03-05] MEDS ORDERED: hydrALAZINE INJ 20 MG/ML VIAL IVP SCH (13:22)
--- NOTE | 2018-03-05 13:24 | CONSULTATION NOTE ---
Referring Provider Name of Referring Provider:: Dr. Tejada Consult Date: 03/05/18 Chief Complaint - Chief Complaint Chief Complaint: hypertension History of Present Illness - History Obtained From Records Reviewed: yes History obtained from: chart review, patient Exam Limitations: AMS, current state - History of Present Illness HPI Comment/Other: Charisse Mckeno is an elderly, poorly conditioned 82-year old female with a past medical history of DM type 2, peripheral neuropathy, bilateral hip replacements , right knee replacement, colovesical fistula, GERD, diverticulosis, IBS, alcohol dependence, major depressive disorder, insomnia, chronic pain syndrome, anemia, atrial fibrillation, chronic edema, diastolic heart failure. The patient was seen by Dr. Ellsworth in a pre-op visit following her colonoscopy. The patient was told about her colovesical fistula that is likely due to diverticulitis and not malignancy. She continues to have symptoms, so agreements were made to proceed with surgical intervention. The patient was admitted on 03/03/18 for a planned sigmoidectomy, with likely colocolostomy, possible end colostomy, and takedown colovesical fistula by general surgery. The patient underwent a sigmoidectomy with take down colovesical fistula. The post op course went as planned, and by 03/05/18 the patient was found to have mild alcohol withdrawal symptoms and in a hypertensive crisis, so Hospitalist service was consulted. We will manage the patient's chronic disease, as well as acute illnesses/problems. Thank you for this consult. History - Past Medical History Cardiovascular: reports: Congestive heart failure, Hypertension, High cholesterol, Atrial fibrillation Respiratory: reports: COPD Neuro: reports: Other Endocrine/Autoimmune: reports: Type 2 diabetes GI: reports: GERD, Chronic diarrhea, Diverticulitis, Other RN STAFFING: reports: None : reports: Incontinence, Chronic bladder infection, Other HEENT: reports: Chronic vision loss Psych: reports: Depression, Other (substance abuse) Musculoskeletal: reports: Osteoarthritis, Osteoporosis Derm: reports: None MRSA Hx?: No - Past Surgical History General: reports: Appendectomy, Hiatal hernia repair, Colonoscopy, Other Ortho: reports: Hip replacement (bilateral), Knee replacement, Other /RN STAFFING: reports: Other HEENT: reports: Cataracts - Family & Social History Family History: Mother: (old age/had colostomy), Father: , Sister: , CVA/TIA, Brother: , Cancer (pancreatic) Family History Comment/Other: Her mother and father of natural causes. She had 3 brothers and one sister and medical problems included; cancer, rheumatic heart disease, and CVA. Living arrangement: At home, Assisted living ([facility] apartments) Living Situation: Alone Social History Notes: The patient states that she still owns a home in [place], but has been staying at [facility] for extra help. She states that she is very close to her 2 daughters. 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 She lost her just a short time ago. She admits to uncontrolled, unsensored, drinking consisting of white wine and several martini's per day. She denies current tobacco dependence, but notes that she smoked from age [age]. She denies illicit drug use. She wishes to be a DNR. - Substance History Use: Uses substance without health or social issues: Alcohol Use Issues: Sleep Disorder Abuse: Recurrent use of substance despite neg consequences: Alcohol Abuse Issues: Sleep Disorder Dependence: Experiences withdrawal or developed tolerances: Alcohol Dependence Issues: Sleep Disorder Tobacco Details: Cigarettes (past history from age ) - POLST Patient has POLST: Yes POLST Status: DNR Meds/Allgy - Home Medications Home Medications: Ambulatory Orders Medication Instructions Recorded Confirmed Citalopram [CeleXA] 40 mg PO DAILY 01/19/15 03/02/18 Lisinopril 10 mg PO DAILY 01/19/15 03/02/18 Cholecalciferol (Vitamin D3) 2,000 unit PO DAILY 01/24/16 03/02/18 [Vitamin D3] Cyanocobalamin (Vitamin B-12) 1,000 mcg PO DAILY 01/24/16 03/02/18 [Vitamin B-12] Acetaminophen [Tylenol] 325 - 650 mg PO Q4H PRN 02/28/16 03/02/18 Ascorbic Acid [Vitamin C] 500 mg PO DAILYWM 02/28/16 03/02/18 Ferrous Sulfate 325 mg PO DAILYWM 02/28/16 03/02/18 Folic Acid 1 mg PO DAILY 02/28/16 03/02/18 Lactobacillus Acidophilus 1 each PO BID 02/16/17 03/02/18 [Acidophilus] Omeprazole 20 mg PO DAILY 02/16/17 03/02/18 Bisacodyl [Dulcolax] 1 tab PO DAILY PM PRN 11/11/17 03/02/18 Nitrofurantoin Monohyd/M-Cryst 100 mg PO DAILY 11/11/17 03/02/18 [Macrobid 100 mg Capsule] Nystatin 1 applic TOP DAILY PRN MDD under 11/11/17 03/02/18 breast Diphenhydramine HCl [Nighttime 50 mg PO QPM PRN 11/24/17 03/02/18 Sleep Aid] Diphenoxylate/Atropine [Lomotil] 2 each PO QID PRN 12/28/17 03/02/18 Tramadol HCl 50 mg PO QID PRN MDD 400 mg. Give 12/28/17 03/02/18 50mg for pain 1-5 Sulfamethox/Trimeth 800/160 1 tab PO BID MDD for 10 days 01/16/18 03/02/18 [Bactrim Ds] - Allergies Allergies/Adverse Reactions: Allergies Allergy/AdvReac Type Severity Reaction Status Date / Time No Known Drug Allergies Allergy Verified 03/02/18 14:57 Review of Systems - Constitutional Constitutional: reports: Fatigue, Poor appetite (patient remains on a CL diet, as per surgery) - Eyes Eyes: reports: Vision loss, Corrective lenses - Ears, Nose & Throat Ears, Nose & Throat: reports: Hearing loss, Postnasal drainage, Sore throat - Cardiovascular Cariovascular: reports: Edema, Decr. exercise tolerance, Orthopnea - Respiratory Respiratory: reports: Cough, Orthopnea, SOB with exertion - Gastrointestinal Gastrointestinal: reports: Diarrhea, Change in bowel habits, Nausea, Reflux/ heartburn, Bloating. denies: Black stools, Bloody stools, Vomiting - Genitourinary Genitourinary: reports: Dysuria, Urgency, Other (tracy in place) - Musculoskeletal Musculoskeletal: reports: Back pain, Muscle aches, Joint pain - Integumentary Integumentary: reports: Dryness - Neurological Neurological: reports: General weakness, Memory problems, Pre-existing deficit, Abnormal gait. denies: Headache, Dizziness - Psychiatric Psychiatric: reports: Depression, Other (substance abuse) - All Other Systems All Other Systems: reports: Reviewed and negative Exam - Vital Signs Reviewed Vital Signs: Yes Vital Signs: Vital Signs x48h Temp Pulse Resp BP BP BP Pulse Ox 03/05/18 13:00 36.4 C L 75 20 221/106 H 03/05/18 12:21 36.4 C L 73 18 217/101 H 95 03/05/18 11:46 70 156/87 H 03/05/18 11:30 67 208/111 H 03/05/18 11:18 218/100 H 03/05/18 11:15 76 218/100 H 206/92 H 03/05/18 07:59 36.4 C L 73 20 170/84 H 95 03/05/18 06:16 75 18 189/84 H 97 - Physical Exam General Appearance: positive: Alert, Moderate distress, Anxious Eyes Bilateral: positive: Normal inspection, PERRL ENT: positive: ENT inspection nml, Pharynx nml, Pharyngeal erythema, Dry mucous membranes Neck: positive: Nml inspection, Thyroid nml, No JVD Respiratory: positive: Chest non-tender, No respiratory distress, Other ( diminshed, shallow breaths.) Cardiovascular: positive: Regular rate & rhythm, No gallop, Irregularly irregular, Systolic murmur, Decreased pulse(s) Peripheral Pulses: positive: 2+ Abdomen: positive: Tenderness, Guarding, Abnml bowel sounds, Other (midlinde post-op wound-CDI and YELITZA drain with bloody drainage to RQ) Back: positive: Nml inspection Skin: positive: No rash, Warm, Dry, Other (pale) Extremities: positive: Non-tender, Pedal edema (non-pitting), Joint swelling Neurologic/Psychiatric: positive: Disoriented to time, Weakness, Sensory loss, Depressed mood/affect, Other (sluggishe speech) Reflexes: Bicep (R): 2+, Bicep (L): 2+ Conclusion/Plan - Diagnosis Diagnosis: Hypertensive crisis. alcohol dependence. essential hypertension. Anemia. Major depressive disorder - Plan Plan: Hypertensive crisis: The patient has a known history of this and is prescribed Lisinopril 10 mg daily at home. Hospitalist service was consulted to help manage primarily this problem. Plan: Check labs including troponin, GGT, TSH, D-dimer, CBC, BNP and lactic acid. Start Hydralazine 10 mg IV Q6H scheduled with parameters to hold med if SPB is less than 110. Monitor on telemetry. Obtain echocardiogram. Alcohol dependence: The patient admits to consuming Martini's, and white wine daily, and several per day. She cannot think of a time that she has tried to quit. She exhibits tremors, short term memory loss, severe hypertension, and minimal palm and forehead sweating. She denies feelings of overwhelming anxiety , visual or auditory hallucinations, nausea, vomiting, or headaches. Plan: Schedule IV lorazepam 1 mg Q3H with PRN dosing. Haldol IM or IV for hallucinations. Thiamine supplement. [facility] protocol. Essential HTN: The patient has a long history of this and is noted to be in a hypertensive crisis. The most likely cause of this is early alcohol withdrawal , but could also be due to post-op pain or acute SC. The patient is prescribed lisinopril at home and has was 146/70 prior to this consult. Today she has been greater than 200 systolic and in the 100's diastolic. Plan: continue work up and monitor VS. Anemia: The patient has a history of this and today her H/H post op is normal at 12/38.9. She had been on an iron supplement. Plan: continue to monitor daily labs and restart iron when appropriate, with improved oral intake. Major depressive disorder: The patient has a history of this and is prescribed Celexa a home. She is known to be alcohol dependent. Plan: Continue to monitor and suggest AODA counseling upon discharge. - Lab Results Lab results reviewed: Yes Fish Bones: 03/06/18 05:40 03/06/18 05:40 - Diagnostic Imaging Results Diagnostic Imaging Results: positive: Prelim report reviewed, Final report reviewed - EKG Results EKG Interpreted Independently: Yes EKG Comparison: No prior EKG
[2018-03-05] MEDS: LORazepam 2 MG/ML VIAL IVP SCH ×2 (13:51→17:35)
[2018-03-05 15:18] LABS: BASOPHILS % (AUTO) 0.3 %; EOSINOPHILS % (AUTO) 0.2 %; LYMPHOCYTES % (AUTO) 10.7 %; MEAN CORPUSCULAR HEMOGLOBIN 30.9 pg (27.0-31.0); MEAN CORPUSCULAR HGB CONC 30.8 g/dL (32.0-36.0); MEAN CORPUSCULAR VOLUME 100.5 fL (81.0-99.0); MEAN PLATELET VOLUME 7.3 fL (7.9-10.8); MONOCYTES # (AUTO) 0.5 10^3/uL (0.0-1.0); MONOCYTES % (AUTO) 5.8 %; NEUTROPHILS # (AUTO) 7.7 10^3/uL (1.5-6.6); PLT - PLATELET COUNT 314 10^3/uL (130-450); RED BLOOD COUNT 3.87 10^6/uL (4.20-5.40); RED CELL DISTRIBUTION WIDTH 15.4 % (12.0-15.0); WHITE BLOOD COUNT 9.3 x10^3/uL (4.8-10.8)
[2018-03-05] MEDS ORDERED: HALOPERIDOL 5 MG/ML VIAL IM PRN (17:40)
[2018-03-05] MEDS ORDERED: HALOPERIDOL 5 MG/ML VIAL IVP PRN (17:40)
[2018-03-05] MEDS: amLODIPine 5 MG TABLET PO SCH (18:08)
[2018-03-05] MEDS: hydrALAZINE INJ 20 MG/ML VIAL IVP SCH (19:19)
[2018-03-05] MEDS ORDERED: MULTIVITAMIN 10 ML in SODIUM CHLORIDE 0.9% 1,000 ML IV SCH (20:00)
[2018-03-05 20:58] LABS: MAGNESIUM 1.5 mg/dL (1.7-2.8); PHOSPHORUS 2.9 mg/dL (2.5-4.6)
[2018-03-05] MEDS ORDERED: SODIUM CHLORIDE 0.9% 1,000 ML IV ONE (22:07)
[2018-03-06] MEDS: ACETAMINOPHEN 1,000 MG/100 ML 100 ML IV SCH ×5 (00:24→17:35)
[2018-03-06] MEDS: LORazepam 2 MG/ML VIAL IVP SCH ×4 (00:29→12:32)
[2018-03-06] MEDS: hydrALAZINE INJ 20 MG/ML VIAL IVP SCH ×3 (00:34→12:32)
[2018-03-06] MEDS: SODIUM CHLORIDE FLUSH 0.9% 10 ML SYRINGE IVP SCH ×3 (02:32→17:30)
[2018-03-06 05:55] LABS: BASOPHILS % (AUTO) 0.6 %; EOSINOPHILS # (AUTO) 0.1 10^3/uL (0.0-0.7); EOSINOPHILS % (AUTO) 0.9 %; HGB - HEMOGLOBIN 12.5 g/dL (12.0-16.0); LYMPHOCYTES # (AUTO) 1.4 10^3/uL (1.5-3.5); LYMPHOCYTES % (AUTO) 20.7 %; MEAN CORPUSCULAR HEMOGLOBIN 31.7 pg (27.0-31.0); MEAN CORPUSCULAR HGB CONC 33.4 g/dL (32.0-36.0); MEAN CORPUSCULAR VOLUME 95.1 fL (81.0-99.0); MONOCYTES # (AUTO) 0.7 10^3/uL (0.0-1.0); NEUTROPHILS # (AUTO) 4.5 10^3/uL (1.5-6.6); NEUTROPHILS % (AUTO) 66.8 %; PLT - PLATELET COUNT 356 10^3/uL (130-450); RED BLOOD COUNT 3.93 10^6/uL (4.20-5.40); RED CELL DISTRIBUTION WIDTH 14.7 % (12.0-15.0); WHITE BLOOD COUNT 6.7 x10^3/uL (4.8-10.8)
[2018-03-06 05:58] LABS: PT - PROTHROMBIN TIME 11.5 secs (9.9-12.6)
[2018-03-06 06:05] LABS: ALBUMIN 2.5 g/dL (3.2-5.5); ALBUMIN/GLOBULIN RATIO 0.7 (1.0-2.2); ALKALINE PHOSPHATASE 62 IU/L (42-121); ALT ALANINE AMINOTRANSFERASE < 10 IU/L (10-60); AST ASPARTATE AMINOTRANSFERASE 11 IU/L (10-42); BILIRUBIN,TOTAL 0.5 mg/dL (0.2-1.0); BUN - BLOOD UREA NITROGEN 5 mg/dL (6-20); CALCIUM 8.3 mg/dL (8.5-10.3); CARBON DIOXIDE - CO2 25 mmol/L (21-32); CHLORIDE 104 mmol/L (101-111); CREATININE 0.4 mg/dL (0.4-1.0); GFR - MDRD 152 (>89); GLUCOSE 105 mg/dL (70-100); PHOSPHORUS 2.8 mg/dL (2.5-4.6); SODIUM 134 mmol/L (135-145)
[2018-03-06] MEDS: LISINOPRIL 5 MG TABLET PO SCH (08:05)
[2018-03-06] MEDS: oxyCODONE 5 MG TABLET PO PRN (08:05)
[2018-03-06] MEDS: amLODIPine 5 MG TABLET PO SCH (08:05)
[2018-03-06] MEDS: ENOXAPARIN 40 MG/0.4 ML SYRINGE SUBQ SCH (08:06)
[2018-03-06] MEDS: POTASSIUM CHLORIDE 20 MEQ/15 ML UDC PO SCH (08:06)
[2018-03-06] MEDS: D5NS W/20 MEQ KCL 1,000 ML IV SCH (08:15)
[2018-03-06] MEDS ORDERED: THIAMINE INJ 100 MG, FOLIC ACID INJ 1 MG in SODIUM CHLORIDE 0.9% 100ML 100 ML IV SCH (09:00)
[2018-03-06] MEDS ORDERED: THIAMINE 100 MG TABLET PO SCH (09:00)
[2018-03-06] MEDS: MAGNESIUM OXIDE 400 MG TABLET PO SCH ×2 (10:40→21:35)
[2018-03-06] MEDS ORDERED: LORazepam 2 MG/ML VIAL IVP PRN (12:39)
[2018-03-06] MEDS ORDERED: hydrALAZINE INJ 20 MG/ML VIAL IVP PRN (12:40)
--- NOTE | 2018-03-06 17:42 | PROVIDER PROGRESS NOTE ---
Subjective - Prog Note Date Prog Note Date: 03/06/18 Prog Note Time: 12:00 - Subjective Pt reports feeling: Improved Subjective: Charisse still has low back pain, but she is up to the chair during this exam, which she claims helps. She denies shortness of breath, nausea, chest pain, vomiting, or a new cough. Current Medications - Current Medications Current Medications: Active Medications Amlodipine Besylate (Norvasc) 5 mg PO DAILY [facility] Last Admin: 03/06/18 08:05 Dose: 5 mg Diphenhydramine HCl (Benadryl Inj) 12.5 - 25 mg IVP Q6HR PRN PRN Reason: ITCHING Enoxaparin Sodium (Lovenox) 40 mg SUBQ DAILY [facility] Last Admin: 03/06/18 08:06 Dose: 40 mg Haloperidol (Haldol Inj) 1 mg IM Q6H PRN PRN Reason: Alcohol Withdrawal Haloperidol (Haldol Inj) 1 mg IVP Q4H PRN PRN Reason: Alcohol Withdrawal Hydralazine HCl (Apresoline Inj) 10 mg IVP Q6H PRN PRN Reason: Hypertensive Emergency Acetaminophen (Ofirmev) 100 mls @ 400 mls/hr IV Q6H [facility] Last Admin: 03/07/18 06:48 Dose: 400 mls/hr Fentanyl/Bupivacaine/Sodium Chlor (Fent/Bupiv 2 Mcg/0.125%) 250 mls @ 0 mls/hr EP .Q0M PRN; Protocol; Per Protocol PRN Reason: PAIN Last Admin: 03/04/18 21:57 Dose: 6 mls/hr Potassium Chloride/Dextrose/Sod Cl () 1,000 mls @ 50 mls/hr IV .Q20H [facility] Last Infusion: 03/06/18 23:00 Dose: Infused Thiamine HCl 100 mg/ Folic (Acid 1 mg/ Sodium Chloride) 101.2 mls @ 50.6 mls/ hr IV DAILY [facility] Last Infusion: 03/06/18 23:00 Dose: 50.6 mls/hr Multivitamins 10 ml/ Sodium (Chloride) 1,010 mls @ 100 mls/hr IV Q24H [facility] Last Admin: 03/06/18 21:35 Dose: 100 mls/hr Lisinopril (Zestril) 10 mg PO DAILY [facility] Last Admin: 03/06/18 08:05 Dose: 10 mg Lorazepam (Ativan Inj (Vial)) 1 mg IVP Q1H PRN PRN Reason: Anxiety Lorazepam (Ativan Inj (Vial)) 0.5 mg IVP Q6HR PRN PRN Reason: Alcohol Withdrawal Magnesium Oxide (Mag Ox) 400 mg PO BID [facility] Last Admin: 03/06/18 21:35 Dose: 400 mg Nalbuphine HCl (Nubain) 2.5 - 5 mg IVP Q4H PRN PRN Reason: Severe Itching Ondansetron HCl (Zofran Inj) 4 mg IVP Q6HR PRN PRN Reason: Nausea / Vomiting Oxycodone HCl (Roxicodone) 5 mg PO Q4HR PRN PRN Reason: PAIN Last Admin: 03/07/18 05:11 Dose: 5 mg Potassium [facility]ide () [facility] Admin: 03/06/18 08:06 Dose: 20 meq Sodium Chloride (Normal Saline Flush 0.9%) 10 ml IVP 0100,0900,1700 [facility] Last Admin: 03/07/18 06:51 Dose: Not Given Sodium Chloride (Normal Saline Flush 0.9%) 10 ml IVP PRN PRN PRN Reason: NEEDED PER PROVIDER ORDERS Thiamine HCl (Vitamin B-1) 100 mg PO DAILY [facility] Last Admin: 03/06/18 08:04 Dose: 100 mg Citalopram [CeleXA] 40 mg PO DAILY 01/19/15 Lisinopril 10 mg PO DAILY 01/19/15 Cholecalciferol (Vitamin D3) [Vitamin D3] 2,000 unit PO DAILY 01/24/16 Cyanocobalamin (Vitamin B-12) [Vitamin B-12] 1,000 mcg PO DAILY 01/24/16 Acetaminophen [Tylenol] 325 - 650 mg PO Q4H PRN 02/28/16 Ascorbic Acid [Vitamin C] 500 mg PO DAILYWM 02/28/16 Ferrous Sulfate 325 mg PO DAILYWM 02/28/16 Folic Acid 1 mg PO DAILY 02/28/16 Lactobacillus Acidophilus [Acidophilus] 1 each PO BID 02/16/17 Omeprazole 20 mg PO DAILY 02/16/17 Bisacodyl [Dulcolax] 1 tab PO DAILY PM PRN 11/11/17 Nitrofurantoin Monohyd/M-Cryst [Macrobid 100 mg Capsule] 100 mg PO DAILY Nystatin 1 applic TOP DAILY PRN MDD under breast 11/11/17 Diphenhydramine HCl [Nighttime Sleep Aid] 50 mg PO QPM PRN 11/24/17 Diphenoxylate/Atropine [Lomotil] 2 each PO QID PRN 12/28/17 Tramadol HCl 50 mg PO QID PRN MDD 400 mg. Give 50mg for pain 1-5 12/28/17 Sulfamethox/Trimeth 800/160 [Bactrim Ds] 1 tab PO BID MDD for 10 days 01/16/18 Objective - Vital Signs/Intake & Output Reviewed Vital Signs: Yes Vital Signs: Vital Signs x48h Temp Pulse Resp BP BP Pulse Ox 03/06/18 15:29 36.4 C L 81 19 120/58 L 97 03/06/18 12:32 131/65 H 03/06/18 12:29 36.6 C 78 16 131/65 H 97 Intake & Output: Intake & Output 03/03/18 03/04/18 03/05/18 03/06/18 23:59 23:59 23:59 23:59 Intake Total 1900 4140 3294.167 1827.347 Output Total 525 1060 1435 2355 Balance 1375 3080 1859.167 -527.653 - Objective General Appearance: positive: No acute distress, Alert, Anxious Eyes Bilateral: positive: Normal inspection, PERRL Eyes: OU Conjunctivae pale ENT: positive: ENT inspection nml, Pharynx nml, No signs of dehydration Neck: positive: Nml inspection, Thyroid nml, No JVD, Lymphadenopathy (R), Lymphadenopathy (L) Respiratory: positive: Chest non-tender, No respiratory distress, Other ( crackles in low bilateral bases.) Cardiovascular: positive: Regular rate & rhythm, No gallop, Systolic murmur, Decreased pulse(s) Peripheral Pulses: 1+ Radial (R), 1+ Radial (L) Abdomen: positive: Tenderness, Guarding, Abnml bowel sounds, Other (midline post surgical site without drainage, YELITZA in place to RQ) Back: positive: Nml inspection Skin: positive: No rash, Warm, Dry Extremities: positive: Non-tender, Full ROM, Pedal edema Neurologic/Psychiatric: positive: Oriented x3, CN's nml (2-12), Motor nml, Weakness, Depressed mood/affect, Other (sluggish) Reflexes: Bicep (R): 3+, Bicep (L): 3+ - Lab Results Fish Bones: 03/06/18 05:40 03/07/18 08:00 Other Labs: Lab Results x24hrs 03/06/18 03/06/18 03/06/18 Range/Units 05:40 05:40 05:40 WBC (4.8-10.8) x10^3/uL RBC (4.20-5.40) 10^6/uL Hgb (12.0-16.0) g/dL Hct (37.0-47.0) % MCV (81.0-99.0) fL MCH (27.0-31.0) pg MCHC (32.0-36.0) g/dL RDW (12.0-15.0) % Plt Count (130-450) 10^3/uL MPV (7.9-10.8) fL Neut # (Auto) (1.5-6.6) 10^3/uL Lymph # (Auto) (1.5-3.5) 10^3/uL Finney # (Auto) (0.0-1.0) 10^3/uL Eos # (Auto) (0.0-0.7) 10^3/uL Baso # (Auto) (0.0-0.1) 10^3/uL Absolute Nucleated RBC x10^3/uL Nucleated RBC % /100WBC PT 11.5 (9.9-12.6) secs INR 1.0 (0.8-1.2) Sodium 134 L (135-145) mmol/L Potassium 3.1 L (3.5-5.0) mmol/L Chloride 104 (101-111) mmol/L Carbon Dioxide 25 (21-32) mmol/L Anion Gap 5.0 L (6-13) BUN 5 L (6-20) mg/dL Creatinine 0.4 (0.4-1.0) mg/dL Estimated GFR (MDRD) 152 (>89) Glucose 105 H (70-100) mg/dL Calcium 8.3 L (8.5-10.3) mg/dL Phosphorus 2.8 (2.5-4.6) mg/dL Magnesium (1.7-2.8) mg/dL Total Bilirubin 0.5 (0.2-1.0) mg/dL AST 11 (10-42) IU/L ALT < 10 L (10-60) IU/L Alkaline Phosphatase 62 (42-121) IU/L Troponin I (<0.49) ng/mL B-Natriuretic Peptide 688 H (5-100) pg/mL Total Protein 6.0 L (6.7-8.2) g/dL Albumin 2.5 L (3.2-5.5) g/dL Globulin 3.5 (2.1-4.2) g/dL Albumin/Globulin Ratio 0.7 L (1.0-2.2) 03/06/18 03/05/18 03/05/18 Range/Units 05:40 20:00 19:44 WBC 6.7 (4.8-10.8) x10^3/uL RBC 3.93 L (4.20-5.40) 10^6/uL Hgb 12.5 (12.0-16.0) g/dL Hct 37.3 (37.0-47.0) % MCV 95.1 (81.0-99.0) fL MCH 31.7 H (27.0-31.0) pg MCHC 33.4 (32.0-36.0) g/dL RDW 14.7 (12.0-15.0) % Plt Count 356 (130-450) 10^3/uL MPV 7.0 L (7.9-10.8) fL Neut # (Auto) 4.5 (1.5-6.6) 10^3/uL Lymph # (Auto) 1.4 L (1.5-3.5) 10^3/uL Finney # (Auto) 0.7 (0.0-1.0) 10^3/uL Eos # (Auto) 0.1 (0.0-0.7) 10^3/uL Baso # (Auto) 0.0 (0.0-0.1) 10^3/uL Absolute Nucleated RBC 0.00 x10^3/uL Nucleated RBC % 0.1 /100WBC PT (9.9-12.6) secs INR (0.8-1.2) Sodium (135-145) mmol/L Potassium (3.5-5.0) mmol/L Chloride (101-111) mmol/L Carbon Dioxide (21-32) mmol/L Anion Gap (6-13) BUN (6-20) mg/dL Creatinine (0.4-1.0) mg/dL Estimated GFR (MDRD) (>89) Glucose (70-100) mg/dL Calcium (8.5-10.3) mg/dL Phosphorus 2.9 (2.5-4.6) mg/dL Magnesium 1.5 L (1.7-2.8) mg/dL Total Bilirubin (0.2-1.0) mg/dL AST (10-42) IU/L ALT (10-60) IU/L Alkaline Phosphatase (42-121) IU/L Troponin I < 0.04 (<0.49) ng/mL B-Natriuretic Peptide (5-100) pg/mL Total Protein (6.7-8.2) g/dL Albumin (3.2-5.5) g/dL Globulin (2.1-4.2) g/dL Albumin/Globulin Ratio (1.0-2.2) - Diagnostic Imaging Diagnostic Imaging Results: positive: Final report reviewed ABX Reporting Has patient been on IV antibiotics over the past 48 hours?: No Assessment/Plan - Problem List (1) Hypertensive crisis Impression: The patient has a known history of this and is prescribed Lisinopril 10 mg daily at home. Hospitalist service was consulted to help manage primarily this problem. All troponins were negative, a TSH was normal at 1.27, D-dimer was elevated due to her being post op, a GGT was normal at 12 and a normal lactic acid. She was started on Norvasc at 5 mg PO. She was started on Hydralzine scheduled every 6 hours IV, and this improved her blood pressure to 130's systolic, and 80's diastolic. Today I changed this to PRN. Still awaiting echocardiogram. Her BNP was elevated at 702 today. I suspect this is either due to early alcohol withdrawal and for from post op complications. Plan: Continue to monitor vital signs, and continue with medication adjustments. (2) Alcohol dependence Impression: The patient admits to consuming up to 3 glasses of white wine and at least 2 martini's per day. She is demonstrating tremors, sweaty palms and these symptoms are improving. She is appropriate in her interactions, but cannot state her medical conditions. She has been scoring only a 2 on the CIWA scale, so this was discontinued. Plan: D/C CIWA and reduce IV lorazepam to PRN. (3) Anemia Impression: Anemia: The patient has a history of this and today her H/H post op is normal at 12.5/37.3. She had been on an iron supplement and remains on folic acid. Plan: continue to monitor daily labs and restart iron when appropriate, with improved oral intake. (4) Major depressive disorder Impression: The patient has a history of this and is prescribed Celexa a home. She is known to be alcohol dependent, although lives at [facility] so I am not sure how much alcohol she must be getting and her method of getting it. She denies suicidal ideation or a loss of hope. Plan: Continue to monitor and suggest AODA counseling upon discharge. 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 She remains with a midline wound that is CDI and will have her YELITZA drain out today. She is having the usual and expected abdominal pain. Plan: Continue to follow for her medical problems and communicate with surgery with upcoming discharge planning.
[2018-03-06] MEDS ORDERED: MULTIVITAMIN 10 ML in SODIUM CHLORIDE 0.9% 1,000 ML IV SCH (22:00)
--- NOTE | 2018-03-06 23:59 | PROVIDER PROGRESS NOTE ---
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 negative: Nausea, Vomiting Genitourinary: positive: No symptoms Skin: positive: No symptoms All Other Systems: positive: Reviewed and negative Objective - Patient Data Reviewed Vital Signs: Yes Vital Signs: Vital Signs x48h Temp Pulse Resp BP Pulse Ox 03/06/18 20:22 36.9 C 76 16 146/80 H 95 Weight: Weight 03/04/18 03/05/18 03/06/18 23:59 23:59 23:59 Weight (kg) 79.5 kg Intake & Output: Intake and Output Totals x24h 03/04/18 03/05/18 03/06/18 23:59 23:59 23:59 Intake Total 4140 3294.167 1977.347 Output Total 1060 1435 2955 Balance 3080 1859.167 -977.653 - Lab Results Lab Results: 03/06/18 05:40 03/06/18 05:40 Other Lab Results: Lab Results x24hrs 03/06/18 03/06/18 03/06/18 Range/Units 05:40 05:40 05:40 WBC (4.8-10.8) x10^3/uL RBC (4.20-5.40) 10^6/uL Hgb (12.0-16.0) g/dL Hct (37.0-47.0) % MCV (81.0-99.0) fL MCH (27.0-31.0) pg MCHC (32.0-36.0) g/dL RDW (12.0-15.0) % Plt Count (130-450) 10^3/uL MPV (7.9-10.8) fL Neut # (Auto) (1.5-6.6) 10^3/uL Lymph # (Auto) (1.5-3.5) 10^3/uL Izard # (Auto) (0.0-1.0) 10^3/uL Eos # (Auto) (0.0-0.7) 10^3/uL Baso # (Auto) (0.0-0.1) 10^3/uL Absolute Nucleated RBC x10^3/uL Nucleated RBC % /100WBC PT 11.5 (9.9-12.6) secs INR 1.0 (0.8-1.2) Sodium 134 L (135-145) mmol/L Potassium 3.1 L (3.5-5.0) mmol/L Chloride 104 (101-111) mmol/L Carbon Dioxide 25 (21-32) mmol/L Anion Gap 5.0 L (6-13) BUN 5 L (6-20) mg/dL Creatinine 0.4 (0.4-1.0) mg/dL Estimated GFR (MDRD) 152 (>89) Glucose 105 H (70-100) mg/dL Calcium 8.3 L (8.5-10.3) mg/dL Phosphorus 2.8 (2.5-4.6) mg/dL Total Bilirubin 0.5 (0.2-1.0) mg/dL AST 11 (10-42) IU/L ALT < 10 L (10-60) IU/L Alkaline Phosphatase 62 (42-121) IU/L B-Natriuretic Peptide 688 H (5-100) pg/mL Total Protein 6.0 L (6.7-8.2) g/dL Albumin 2.5 L (3.2-5.5) g/dL Globulin 3.5 (2.1-4.2) g/dL Albumin/Globulin Ratio 0.7 L (1.0-2.2) 03/06/18 Range/Units 05:40 WBC 6.7 (4.8-10.8) x10^3/uL RBC 3.93 L (4.20-5.40) 10^6/uL Hgb 12.5 (12.0-16.0) g/dL Hct 37.3 (37.0-47.0) % MCV 95.1 (81.0-99.0) fL MCH 31.7 H (27.0-31.0) pg MCHC 33.4 (32.0-36.0) g/dL RDW 14.7 (12.0-15.0) % Plt Count 356 (130-450) 10^3/uL MPV 7.0 L (7.9-10.8) fL Neut # (Auto) 4.5 (1.5-6.6) 10^3/uL Lymph # (Auto) 1.4 L (1.5-3.5) 10^3/uL Izard # (Auto) 0.7 (0.0-1.0) 10^3/uL Eos # (Auto) 0.1 (0.0-0.7) 10^3/uL Baso # (Auto) 0.0 (0.0-0.1) 10^3/uL Absolute Nucleated RBC 0.00 x10^3/uL Nucleated RBC % 0.1 /100WBC PT (9.9-12.6) secs INR (0.8-1.2) Sodium (135-145) mmol/L Potassium (3.5-5.0) mmol/L Chloride (101-111) mmol/L Carbon Dioxide (21-32) mmol/L Anion Gap (6-13) BUN (6-20) mg/dL Creatinine (0.4-1.0) mg/dL Estimated GFR (MDRD) (>89) Glucose (70-100) mg/dL Calcium (8.5-10.3) mg/dL Phosphorus (2.5-4.6) mg/dL Total Bilirubin (0.2-1.0) mg/dL AST (10-42) IU/L ALT (10-60) IU/L Alkaline Phosphatase (42-121) IU/L B-Natriuretic Peptide (5-100) pg/mL Total Protein (6.7-8.2) g/dL Albumin (3.2-5.5) g/dL Globulin (2.1-4.2) g/dL Albumin/Globulin Ratio (1.0-2.2) - Current Medications Current Medications: Current Medications Generic Name Dose Route Start Last Admin Trade Name Freq PRN Reason Stop Dose Admin Amlodipine Besylate 5 mg 03/05/18 18:00 03/06/18 08:05 Norvasc PO 5 mg DAILY DOMINIQUE Administration Enoxaparin Sodium 40 mg 03/04/18 09:00 03/06/18 08:06 Lovenox SUBQ 40 mg DAILY DOMINIQUE Administration Acetaminophen 100 mls @ 400 mls/hr 03/03/18 12:00 03/06/18 18:18 Ofirmev IV Infused Q6H DOMINIQUE Infusion Fentanyl/Bupivacaine/Sodium Chlor 250 mls @ 0 mls/hr 03/03/18 11:56 03/04/18 21:57 Fent/Bupiv 2 Mcg/0.125% EP 6 mls/hr .Q0M PRN Administration PAIN Protocol Per Protocol Potassium Chloride/Dextrose/Sod Cl 1,000 mls @ 50 mls/hr 03/05/18 07:50 03/06 08:15 IV 50 mls/hr .Q20H DOMINIQUE Administration Thiamine HCl 100 mg/ Folic 101.2 mls @ 50.6 mls/hr 03/06/18 09:00 03/06/18 10 :15 Acid 1 mg/ Sodium Chloride IV 0 mls/hr DAILY DOMINIQUE Infusion Multivitamins 10 ml/ Sodium 1,010 mls @ 100 mls/hr 03/06/18 22:00 03/06/18 21 :35 Chloride IV 100 mls/hr Q24H DOMINIQUE Administration Lisinopril 10 mg 03/04/18 17:00 03/06/18 08:05 Zestril PO 10 mg DAILY DOMINIQUE Administration Magnesium Oxide 400 mg 03/06/18 10:00 03/06/18 21:35 Mag Ox PO 400 mg BID DOMINIQUE Administration Oxycodone HCl 5 mg 03/05/18 07:50 03/06/18 08:05 Roxicodone PO 5 mg Q4HR PRN Administration PAIN Potassium Chloride 20 meq 03/05/18 08:00 03/06/18 08:06 PO 20 meq DAILYWM DOMINIQUE Administration Sodium Chloride 10 ml 03/03/18 17:00 03/06/18 17:30 Normal Saline Flush 0.9% IVP Not Given 0100,0900,1700 DOMINIQUE Thiamine HCl 100 mg 03/06/18 09:00 03/06/18 08:04 Vitamin B-1 PO 100 mg DAILY DOMINIQUE Administration - Physical Exam Wound/Incisions: positive: Healing well General Appearance: positive: No acute distress (Sitting up eating and tolerating general diet.) Eyes Bilateral: positive: No lid inflammation, Conjunctivae nml, No scleral icterus ENT: positive: No signs of dehydration Neck: positive: Trachea midline Respiratory: positive: Chest non-tender, No respiratory distress, Breath sounds nml Cardiovascular: positive: Regular rate & rhythm Abdomen: positive: Nml bowel sounds, Tenderness (Minimal incisional.), Other (I removed the drain and the patient tolerated it well.) Skin: positive: Color nml Extremities: positive: Nml appearance Neurologic/Psychiatric: positive: Oriented x3 Impression/Plan - Problem List Problem List: D4 s/p sigmoidectomy with colocolostomy and takedown of colovesicular fistula 1) FEN Tolerating general diet. 2) ID No evidence of infection. 3) Pathology Pending 4) DVT Prophylaxis in place. 5) Bladder Check with radiographic study in AM - if no leak remove Boston. 6) Wound 1/2 mercy out. 7) HTN Per medical service.
[2018-03-07] MEDS: ACETAMINOPHEN 1,000 MG/100 ML 100 ML IV SCH ×2 (00:37→06:48)
[2018-03-07] MEDS: oxyCODONE 5 MG TABLET PO PRN ×6 (01:05→21:20)
[2018-03-07] MEDS: SODIUM CHLORIDE FLUSH 0.9% 10 ML SYRINGE IVP SCH ×2 (06:51→07:42)
[2018-03-07] MEDS: D5NS W/20 MEQ KCL 1,000 ML IV SCH ×2 (07:42→08:23)
[2018-03-07 08:18] LABS: ALBUMIN 2.3 g/dL (3.2-5.5); ALBUMIN/GLOBULIN RATIO 0.7 (1.0-2.2); ALKALINE PHOSPHATASE 58 IU/L (42-121); ALT ALANINE AMINOTRANSFERASE < 10 IU/L (10-60); AST ASPARTATE AMINOTRANSFERASE 12 IU/L (10-42); BILIRUBIN,TOTAL 0.6 mg/dL (0.2-1.0); BUN - BLOOD UREA NITROGEN 8 mg/dL (6-20); CALCIUM 8.4 mg/dL (8.5-10.3); CARBON DIOXIDE - CO2 23 mmol/L (21-32); CHLORIDE 106 mmol/L (101-111); CREATININE 0.5 mg/dL (0.4-1.0); GFR - MDRD 118 (>89); GLUCOSE 109 mg/dL (70-100); SODIUM 136 mmol/L (135-145); TOTAL PROTEIN 5.7 g/dL (6.7-8.2)
[2018-03-07] MEDS: ACETAMINOPHEN 500 MG TABLET PO PRN ×2 (08:18→20:16)
[2018-03-07] MEDS: LISINOPRIL 5 MG TABLET PO SCH (08:57)
[2018-03-07] MEDS: THIAMINE 100 MG TABLET PO SCH (08:57)
[2018-03-07] MEDS: amLODIPine 5 MG TABLET PO SCH (08:57)
[2018-03-07] MEDS: MULTIVITAMIN W/MINERALS TABLET PO SCH (08:57)
[2018-03-07] MEDS: MAGNESIUM OXIDE 400 MG TABLET PO SCH ×2 (08:58→20:43)
[2018-03-07] MEDS: ENOXAPARIN 40 MG/0.4 ML SYRINGE SUBQ SCH (08:58)
[2018-03-07] MEDS: FOLIC ACID 1 MG TABLET PO SCH (08:58)
[2018-03-07] MEDS: POTASSIUM CHLORIDE 20 MEQ/15 ML UDC PO SCH ×3 (08:58→20:44)
--- NOTE | 2018-03-07 09:36 | PROVIDER PROGRESS NOTE ---
Subjective - General Admit Date: 03/03/18 Procedure Date: 03/03/18 Post Op Days: 5 Procedure Performed: Sigmoidectomy with colocolostomy and takedown colovesicular fistula - Review of Systems Wound/Incisions: positive: Healing well General: positive: Weakness HEENT: positive: No symptoms Pulmonary: positive: No symptoms, Shortness of breath Cardiovascular: positive: No symptoms Gastrointestinal: positive: No symptoms (BM as well.), Flatus Genitourinary: positive: No symptoms Skin: positive: No symptoms Psychiatric: positive: Anxiety All Other Systems: positive: Reviewed and negative Objective - Patient Data Reviewed Vital Signs: Yes Vital Signs: Vital Signs x48h Temp Pulse Resp BP Pulse Ox 03/07/18 07:57 36.5 C 77 18 161/84 H 97 03/07/18 04:23 36.5 C 85 18 148/72 H 97 Intake & Output: Intake and Output Totals x24h 03/05/18 03/06/18 03/07/18 23:59 23:59 23:59 Intake Total 3294.167 2714.347 1559.686 Output Total 1435 2955 350 Balance 1859.167 -472.325 7322.686 - Lab Results Lab Results: 03/08/18 05:00 03/08/18 05:00 Other Lab Results: Lab Results x24hrs 03/07/18 03/06/18 Range/Units 08:00 05:40 Sodium 136 (135-145) mmol/L Potassium 3.2 L (3.5-5.0) mmol/L Chloride 106 (101-111) mmol/L Carbon Dioxide 23 (21-32) mmol/L Anion Gap 7.0 (6-13) BUN 8 (6-20) mg/dL Creatinine 0.5 (0.4-1.0) mg/dL Estimated GFR (MDRD) 118 (>89) Glucose 109 H (70-100) mg/dL Calcium 8.4 L (8.5-10.3) mg/dL Total Bilirubin 0.6 (0.2-1.0) mg/dL AST 12 (10-42) IU/L ALT < 10 L (10-60) IU/L Alkaline Phosphatase 58 (42-121) IU/L B-Natriuretic Peptide 688 H (5-100) pg/mL Total Protein 5.7 L (6.7-8.2) g/dL Albumin 2.3 L (3.2-5.5) g/dL Globulin 3.4 (2.1-4.2) g/dL Albumin/Globulin Ratio 0.7 L (1.0-2.2) - Current Medications Current Medications: Current Medications Generic Name Dose Route Start Last Admin Trade Name Freq PRN Reason Stop Dose Admin Acetaminophen 500 mg 03/07/18 07:26 03/07/18 08:18 Tylenol PO 500 mg Q4HR PRN Administration Pain or Fever > 38C (100.4F) Amlodipine Besylate 5 mg 03/05/18 18:00 03/07/18 08:57 Norvasc PO 5 mg DAILY DOMINIQUE Administration Enoxaparin Sodium 40 mg 03/04/18 09:00 03/07/18 08:58 Lovenox SUBQ 40 mg DAILY DOMINIQUE Administration Folic Acid 1 mg 03/07/18 09:00 03/07/18 08:58 PO 1 mg DAILY DOMINIQUE Administration Potassium Chloride/Dextrose/Sod Cl 1,000 mls @ 50 mls/hr 03/05/18 07:50 03/07 08:30 IV 0 mls/hr .Q20H DOMINIQUE Infusion Lisinopril 10 mg 03/04/18 17:00 03/07/18 08:57 Zestril PO 10 mg DAILY DOMINIQUE Administration Magnesium Oxide 400 mg 03/06/18 10:00 03/07/18 08:58 Mag Ox PO 400 mg BID DOMINIQUE Administration Multivitamins/Minerals 1 tab 03/07/18 08:00 03/07/18 08:57 Theragran M PO 1 tab DAILYWM DOMINIQUE Administration Oxycodone HCl 5 mg 03/05/18 07:50 03/07/18 08:57 Roxicodone PO 5 mg Q4HR PRN Administration PAIN Potassium Chloride 20 meq 03/05/18 08:00 03/07/18 08:58 PO 20 meq DAILYWM DOMINIQUE Administration Sodium Chloride 10 ml 03/03/18 17:00 03/07/18 07:42 Normal Saline Flush 0.9% IVP Not Given 0100,0900,1700 DOMINIQUE Thiamine HCl 100 mg 03/07/18 09:00 03/07/18 08:57 Vitamin B-1 PO 100 mg DAILY DOMINIQUE Administration - Physical Exam Wound/Incisions: positive: Healing well General Appearance: positive: No acute distress Eyes Bilateral: positive: No lid inflammation, Conjunctivae nml, No scleral icterus ENT: positive: No signs of dehydration Neck: positive: Trachea midline Respiratory: positive: Chest non-tender Cardiovascular: positive: Regular rate & rhythm Abdomen: positive: Non-tender, Other (Drain site clean.) Skin: positive: Color nml Extremities: positive: Nml appearance Neurologic/Psychiatric: positive: Oriented x3 Impression/Plan - Problem List Problem List: D5 s/p sigmoidectomy with colocolostomy and takedown of colovesicular fistula 1) FEN Tolerating general diet. 2) ID No evidence of infection. 3) Pathology Pending 4) DVT Prophylaxis in place. 5) Bladder Awaiting cystogram - not done yet. When done can remove Boston. 6) Wound 1/2 mercy out. 7) HTN Spoke with the medical service that asked if I could keep her in for one additional day for diuresis and better blood pressure control.
[2018-03-07] MEDS ORDERED: IOTHALAMATE MEGLUMINE 250 ML VIAL UR ONE (15:57)
--- NOTE | 2018-03-07 16:21 | XRAY Report ---
Procedure Date: 03/07/2018 Accession Number: [id number] / [id number] Procedure: FL - Cystography CPT Code: FULL RESULT: EXAM: Cystography DATE: 03/07/2018 3:50 PM CLINICAL HISTORY: Patient had a colovesical fistula, repaired operat COMPARISON: CT abdomen and pelvis 09/03/2017 TECHNIQUE/FINDINGS: With the patient in the supine position on the fluoroscopy table, approximately 200 mL of Conray contrast were instilled retrograde into the bladder through the indwelling Boston catheter with intermittent fluoroscopy. Once further instillation of contrast was found to accumulate within the patient's diaper, instillation was stopped. At this time still fluoroscopic images in the AP and lateral projection were obtained. A posterior outpouching filled with contrast is identified without evidence of free spillage into the peritoneum or tracking along the retroperitoneal space. Fluoroscopic exposure time: 2 minutes 46 seconds Number of fluoroscopic images: 12. IMPRESSION: Cystogram with posterior outpouching and no free spillage into the peritoneum or retroperitoneal space. Given previous fistula, this should be correlated to intraoperative findings of a diverticulum or the type of intraoperative repair. It is unclear whether this represents a bladder defect or fistula, follow-up lateral abdominal radiograph or CT could be obtained to localize and trace the instilled contrast over time. RADIA
[2018-03-07] MEDS: hydrALAZINE 10 MG TABLET PO SCH (17:06)
--- NOTE | 2018-03-07 17:17 | PROVIDER PROGRESS NOTE ---
Subjective - Prog Note Date Prog Note Date: 03/07/18 Prog Note Time: 17:00 - Subjective Pt reports feeling: Improved Subjective: Charisse has no complaints and is quite happy sitting in her chair. Her IV has fallen out, so a call to Dr. Ellsworth, confirms no more need for any IV medications. She denies SOB, chest pain, nausea, vomiting, or a new cough. Objective - Vital Signs/Intake & Output Reviewed Vital Signs: Yes Vital Signs: Vital Signs x48h Temp Pulse Resp BP Pulse Ox 03/07/18 17:07 85 148/73 H 03/07/18 16:08 36.6 C 78 16 164/77 H 96 03/07/18 13:00 36.7 C 87 16 123/66 98 Intake & Output: Intake & Output 03/04/18 03/05/18 03/06/18 03/07/18 23:59 23:59 23:59 23:59 Intake Total 4140 3294.167 2714.347 1659.686 Output Total 1060 1435 2955 350 Balance 3080 1859.167 -461.299 9295.686 - Objective General Appearance: positive: No acute distress, Alert Eyes Bilateral: positive: Normal inspection ENT: positive: ENT inspection nml, Pharynx nml, Pharyngeal erythema, Dry mucous membranes Neck: positive: Nml inspection, Thyroid nml, No JVD, Stiff neck Respiratory: positive: Chest non-tender, No respiratory distress, Other ( diminshed bilateral lobes) Cardiovascular: positive: No gallop, Irregularly irregular, Systolic murmur, Decreased pulse(s) Peripheral Pulses: 1+ Radial (R), 1+ Radial (L) Abdomen: positive: Tenderness, Guarding, Abnml bowel sounds (hyperactive, healthy looking midline inscision. No longer has a YELITZA drain.) Back: positive: Nml inspection Skin: positive: No rash, Warm, Dry Extremities: positive: Non-tender, Pedal edema (+1-2 pitting BLE edema.), Joint swelling Neurologic/Psychiatric: positive: CN's nml (2-12), Motor nml, Sensation nml, Weakness, Depressed mood/affect, Other (delayed responses.) Reflexes: Bicep (R): 2+, Bicep (L): 2+ - Lab Results Fish Bones: 03/06/18 05:40 03/07/18 08:00 Other Labs: Lab Results x24hrs 03/07/18 Range/Units 08:00 Sodium 136 (135-145) mmol/L Potassium 3.2 L (3.5-5.0) mmol/L Chloride 106 (101-111) mmol/L Carbon Dioxide 23 (21-32) mmol/L Anion Gap 7.0 (6-13) BUN 8 (6-20) mg/dL Creatinine 0.5 (0.4-1.0) mg/dL Estimated GFR (MDRD) 118 (>89) Glucose 109 H (70-100) mg/dL Calcium 8.4 L (8.5-10.3) mg/dL Total Bilirubin 0.6 (0.2-1.0) mg/dL AST 12 (10-42) IU/L ALT < 10 L (10-60) IU/L Alkaline Phosphatase 58 (42-121) IU/L Total Protein 5.7 L (6.7-8.2) g/dL Albumin 2.3 L (3.2-5.5) g/dL Globulin 3.4 (2.1-4.2) g/dL Albumin/Globulin Ratio 0.7 L (1.0-2.2) - Diagnostic Imaging Diagnostic Imaging Results: positive: Prelim report reviewed, Final report reviewed ABX Reporting Has patient been on IV antibiotics over the past 48 hours?: No Assessment/Plan - Problem List (1) Hypertensive crisis Impression: The patient has a known history of this and is prescribed Lisinopril 10 mg daily at home. Today her blood pressure started off ok, now elevated at 160's systolic over 80's diastolic and I suspect fluid overload is the primary cause. Preliminary echocardiogram shows a LV hypertrophy, and she is thought to be fluid overloaded with a BNP of 702. She was started on Norvasc at 5 mg PO. Plan: Continue to monitor vital signs, daily labs, and continue with medication adjustments including adding a one time dose of lasix 20 mg PO. (2) Alcohol dependence Impression: The patient admits to consuming up to 3 glasses of white wine and at least 2 martini's per day. She is demonstrating tremors, sweaty palms and these symptoms are improving. She is appropriate in her interactions, but cannot state her medical conditions. She has been scoring only a 2 on the CIWA scale, so this was discontinued. She is no longer showing signs of this and is thought to have baseline dementia. Plan: Continue to monitor for signs of this. (3) Anemia Impression: The patient has a history of this and is WNLs. She had been on an iron supplement and remains on folic acid. Plan: continue to monitor daily labs and restart iron when appropriate, with improved oral intake. (4) Major depressive disorder Impression: The patient has a history of this and is prescribed Celexa a home. She is known to be alcohol dependent, although lives at [facility] so I am not sure how much alcohol she must be getting and her method of getting it. She denies suicidal ideation or a loss of hope. Plan: Continue to monitor and suggest AODA counseling upon discharge. 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 She remains with a midline wound that is CDI and no longer has a YELITZA drain. She is having the usual and expected abdominal pain. She is eating and drinking well. She states that she does not feel constipated and as per charting, she has had good results. Plan: Continue to follow for her medical problems and communicate with surgery with upcoming discharge planning.
[2018-03-07] MEDS: FUROSEMIDE 20 MG TABLET PO SCH (18:04)
[2018-03-07] MEDS ORDERED: SIMETHICONE 40 MG/0.6 ML 30 ML BOTTLE PO PRN (20:23)
[2018-03-07] MEDS ORDERED: SIMETHICONE CHEW 80 MG TABLET PO SCH (21:00)
[2018-03-07] MEDS ORDERED: oxyCODONE 5 MG TABLET PO STA (21:59)
[2018-03-07 22:13] LABS: BASOPHILS # (AUTO) 0.1 10^3/uL (0.0-0.1); BASOPHILS % (AUTO) 0.6 %; EOSINOPHILS # (AUTO) 0.1 10^3/uL (0.0-0.7); EOSINOPHILS % (AUTO) 1.3 %; HGB - HEMOGLOBIN 12.8 g/dL (12.0-16.0); LYMPHOCYTES # (AUTO) 1.9 10^3/uL (1.5-3.5); LYMPHOCYTES % (AUTO) 19.3 %; MEAN CORPUSCULAR HEMOGLOBIN 31.8 pg (27.0-31.0); MEAN CORPUSCULAR VOLUME 93.5 fL (81.0-99.0); MONOCYTES # (AUTO) 0.6 10^3/uL (0.0-1.0); MONOCYTES % (AUTO) 6.1 %; NEUTROPHILS # (AUTO) 7.1 10^3/uL (1.5-6.6); NEUTROPHILS % (AUTO) 72.7 %; PLT - PLATELET COUNT 369 10^3/uL (130-450); RED BLOOD COUNT 4.02 10^6/uL (4.20-5.40); WHITE BLOOD COUNT 9.8 x10^3/uL (4.8-10.8)
[2018-03-07 22:24] LABS: MAGNESIUM 1.6 mg/dL (1.7-2.8); PHOSPHORUS 2.3 mg/dL (2.5-4.6)
[2018-03-07 22:25] LABS: ALBUMIN 2.6 g/dL (3.2-5.5); ALBUMIN/GLOBULIN RATIO 0.7 (1.0-2.2); ALKALINE PHOSPHATASE 63 IU/L (42-121); ALT ALANINE AMINOTRANSFERASE < 10 IU/L (10-60); AST ASPARTATE AMINOTRANSFERASE 12 IU/L (10-42); BILIRUBIN,TOTAL 0.5 mg/dL (0.2-1.0); BUN - BLOOD UREA NITROGEN 10 mg/dL (6-20); CALCIUM 8.5 mg/dL (8.5-10.3); CARBON DIOXIDE - CO2 22 mmol/L (21-32); CHLORIDE 105 mmol/L (101-111); CREATININE 0.6 mg/dL (0.4-1.0); GFR - MDRD 95 (>89); GLUCOSE 152 mg/dL (70-100); SODIUM 135 mmol/L (135-145); TOTAL PROTEIN 6.1 g/dL (6.7-8.2)
--- NOTE | 2018-03-07 22:55 | XRAY Report ---
Procedure Date: 03/07/2018 Accession Number: [id number] / [id number] Procedure: XR - Abdomen Acute CPT Code: FULL RESULT: EXAM: ABDOMINAL SERIES AND PA CHEST EXAM DATE: 03/07/2018 10:20 PM. CLINICAL HISTORY: Worsening abdomen pain and distension. COMPARISON: None. TECHNIQUE: 2 views abdomen and 1 view chest. FINDINGS: CHEST: Lungs/Pleura: No focal opacities. No effusion or pneumothorax. Mediastinum: Large heart.. Heavily calcified non-dilated aorta noted. ABDOMEN: Bowel Gas Pattern: No dilated bowel. Prominent large and small bowel gas, likely postoperative ileus in this patient with midline pelvic skin mercy. Free Air: None. Other: Bilateral hip arthroplasties noted. IMPRESSION: 1. Prominent large and small bowel air without dilatation, likely postoperative ileus. 2. Large heart noted. RADIA
[2018-03-08] MEDS: hydrALAZINE 10 MG TABLET PO SCH ×2 (00:13→05:47)
[2018-03-08] MEDS: ACETAMINOPHEN 500 MG TABLET PO PRN ×2 (00:15→10:16)
[2018-03-08] MEDS: oxyCODONE 5 MG TABLET PO PRN ×2 (01:32→05:47)
[2018-03-08 05:29] LABS: BASOPHILS % (AUTO) 0.1 %; HGB - HEMOGLOBIN 11.9 g/dL (12.0-16.0); LYMPHOCYTES # (AUTO) 1.1 10^3/uL (1.5-3.5); LYMPHOCYTES % (AUTO) 6.3 %; MEAN CORPUSCULAR HEMOGLOBIN 31.2 pg (27.0-31.0); MEAN CORPUSCULAR HGB CONC 32.9 g/dL (32.0-36.0); MEAN CORPUSCULAR VOLUME 94.7 fL (81.0-99.0); MEAN PLATELET VOLUME 7.5 fL (7.9-10.8); MONOCYTES # (AUTO) 0.8 10^3/uL (0.0-1.0); MONOCYTES % (AUTO) 4.6 %; PLT - PLATELET COUNT 341 10^3/uL (130-450); RED BLOOD COUNT 3.82 10^6/uL (4.20-5.40); RED CELL DISTRIBUTION WIDTH 15.1 % (12.0-15.0); WHITE BLOOD COUNT 16.8 x10^3/uL (4.8-10.8)
[2018-03-08 05:46] LABS: ALBUMIN 2.5 g/dL (3.2-5.5); ALBUMIN/GLOBULIN RATIO 0.8 (1.0-2.2); ALKALINE PHOSPHATASE 59 IU/L (42-121); ALT ALANINE AMINOTRANSFERASE < 10 IU/L (10-60); AST ASPARTATE AMINOTRANSFERASE 13 IU/L (10-42); BILIRUBIN,TOTAL 0.6 mg/dL (0.2-1.0); BUN - BLOOD UREA NITROGEN 10 mg/dL (6-20); CALCIUM 8.3 mg/dL (8.5-10.3); CARBON DIOXIDE - CO2 23 mmol/L (21-32); CHLORIDE 108 mmol/L (101-111); CREATININE 0.6 mg/dL (0.4-1.0); GFR - MDRD 95 (>89); GLUCOSE 142 mg/dL (70-100); MAGNESIUM 1.6 mg/dL (1.7-2.8); SODIUM 138 mmol/L (135-145); TOTAL PROTEIN 5.6 g/dL (6.7-8.2)
--- NOTE | 2018-03-08 09:51 | XRAY Report ---
Procedure Date: 03/08/2018 Accession Number: [id number] / [id number] Procedure: XR - Abdomen 1 View X-Ray CPT Code: 06706 FULL RESULT: EXAM: Abdomen 1 View X-Ray DATE: 03/08/2018 9:40 AM CLINICAL HISTORY: f/u cystogram; lateral abd film please COMPARISON: Reference is made to the cystogram performed 03/07/2018. TECHNIQUE: 1 view. FINDINGS: No residual contrast is identified. The bowel gas pattern is suggestive of ileus. IMPRESSION: No abnormality related to the prior day's cystogram. Suspect ileus. RADIA
--- NOTE | 2018-03-08 10:05 | Discharge Plan ---
"Discharge Plan for SNF / [facility] - DC Plan and Transition Orders Disposition: 03 SNF DC/Xfer Condition: Good SNF Transition Orders: Admit to: [facility] under the care of Octavia Chow Discharge Diagnosis: Sigmoidectomy, colovesical fistula repair, post operative state, alcohol dependence, DM type 2, peripheral neuropathy, GERD, diverticuliosis, IBS, major depressive disorder, insomnia, chronic pain syndrome , anemia, atrial fibrillation, chronic edema, CHF. Medicare Certification: I certify that [facility] assisted living nursing care is medically necessary on a continuing basis for any of the conditions for which she/he is receiving care during hospitalization. Notify PCP of admission and forward orders to primary provider for signature. Treatments & Other Orders: Mid line abdominal incision wound checks daily. Please take daily vital signs for the next 10 days. Notify the MD of any fevers or changes in mental status. Follow up with general surgery in 1 week at their clinic. Lab Tests or X-Rays Orders: Not indicated. Home health services. Medications: PLEASE REFER TO THE DISCHARGE MEDICATION LIST. Allergies and Adverse Reactions: Allergies Allergy/AdvReac Type Severity Reaction Status Date / Time No Known Drug Allergies Allergy Verified 03/02/18 14:57 - Medications New Prescriptions: amLODIPine [Norvasc] 5 mg PO DAILY #30 tablet hydrALAZINE [Apresoline] 10 mg PO TID #90 tablet Magnesium Oxide [Mag Ox] 400 mg PO BID #60 tablet Multivitamin W/Minerals [Theragran M] 1 tab PO DAILYWM #30 tablet - Diet Type: Geriatric Texture: Regular Liquids: Thin May have monthly special meal: Yes - Therapies | Activity Therapy: Evaluation | Treat if indicated: PT, OT Rehabilitation Potential: Maximize functional status, Return to independent living, Maintain present ADL Functional Activity: Activity as Tolerated Weight Bearing: Full Weight Assistance Devices: Walker"
[2018-03-08 10:14] VITALS: BP 129/65
[2018-03-08] MEDS: LISINOPRIL 5 MG TABLET PO SCH (10:15)
[2018-03-08] MEDS: FUROSEMIDE 20 MG TABLET PO SCH (10:15)
[2018-03-08] MEDS: ENOXAPARIN 40 MG/0.4 ML SYRINGE SUBQ SCH (10:16)
[2018-03-08] MEDS: amLODIPine 5 MG TABLET PO SCH (10:16)
[2018-03-08] MEDS: MAGNESIUM OXIDE 400 MG TABLET PO SCH (10:16)
[2018-03-08] MEDS: FOLIC ACID 1 MG TABLET PO SCH (10:16)
[2018-03-08] MEDS: THIAMINE 100 MG TABLET PO SCH (10:16)
[2018-03-08] MEDS: MULTIVITAMIN W/MINERALS TABLET PO SCH (10:16)
[2018-03-08] MEDS: POTASSIUM CHLORIDE 20 MEQ/15 ML UDC PO SCH (10:17)
--- NOTE | 2018-03-08 13:38 | DISCHARGE SUMMARY ---
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 Additional diagnosis of HTN improved with Hospitalist intervention - HPI History of Present Illness: 82 year old female with colovesical fistula brought into hospital for semi- elective repair (at her request) after a discussion of the pros and cons. Postoperativelynoted to have hypertension and hospitalist help very much appreciated. - CONSULTS | PROCEDURES Consultations: Hospitalist service Procedures: Sigmoidectomy with takedown colovesical fistula (03-03-18 Charan/Lala Nur) - ALLERGIES Allergies/Adverse Reactions: Allergies Allergy/AdvReac Type Severity Reaction Status Date / Time No Known Drug Allergies Allergy Verified 03/02/18 14:57 - MEDICATIONS Home Medications: Ambulatory Orders Medication Instructions Recorded Confirmed Citalopram [CeleXA] 40 mg PO DAILY 01/19/15 03/02/18 Lisinopril 10 mg PO DAILY 01/19/15 03/02/18 Cholecalciferol (Vitamin D3) 2,000 unit PO DAILY 01/24/16 03/02/18 [Vitamin D3] Cyanocobalamin (Vitamin B-12) 1,000 mcg PO DAILY 01/24/16 03/02/18 [Vitamin B-12] Acetaminophen [Tylenol] 325 - 650 mg PO Q4H PRN 02/28/16 03/02/18 Ascorbic Acid [Vitamin C] 500 mg PO DAILYWM 02/28/16 03/02/18 Ferrous Sulfate 325 mg PO DAILYWM 02/28/16 03/02/18 Folic Acid 1 mg PO DAILY 02/28/16 03/02/18 Lactobacillus Acidophilus 1 each PO BID 02/16/17 03/02/18 [Acidophilus] Omeprazole 20 mg PO DAILY 02/16/17 03/02/18 Bisacodyl [Dulcolax] 1 tab PO DAILY PM PRN 11/11/17 03/02/18 Nystatin 1 applic TOP DAILY PRN MDD under 11/11/17 03/02/18 breast Diphenhydramine HCl [Nighttime 50 mg PO QPM PRN 11/24/17 03/02/18 Sleep Aid] Diphenoxylate/Atropine [Lomotil] 2 each PO QID PRN 12/28/17 03/02/18 Tramadol HCl 50 mg PO QID PRN MDD 400 mg. Give 12/28/17 03/02/18 50mg for pain 1-5 Magnesium Oxide [Mag Ox] 400 mg PO BID #60 tablet 03/08/18 Multivitamin W/Minerals [Theragran 1 tab PO DAILYWM #30 tablet 03/08/18 M] amLODIPine [Norvasc] 5 mg PO DAILY #30 tablet 03/08/18 hydrALAZINE [Apresoline] 10 mg PO TID #90 tablet 03/08/18 - PHYSICAL EXAM AT DISCHARGE General Appearance: positive: No acute distress Eyes Bilateral: positive: No lid inflammation, Conjunctivae nml, No scleral icterus ENT: positive: No signs of dehydration Neck: positive: Trachea midline Respiratory: positive: Chest non-tender, Breath sounds nml Cardiovascular: positive: Regular rate & rhythm Abdomen: positive: Non-tender, Other (Kal in place without infection or hernia. Drain site clean and dry. Dressings removed.) Skin: positive: Color nml Extremities: positive: Non-tender Neurologic/Psychiatric: positive: Oriented x3 - LABS Result Diagrams: 03/08/18 05:00 03/08/18 05:00 - DIAGNOSTIC IMAGING Diagnostic Imaging Results: Final report reviewed, Read independently Diagnostic Imaging Results Comments: No evidence of urinary leak and Boston removed. - FOLLOW UP Follow Up: Charan in 7-10 days - TIME SPENT Time Spent in Discharge (Minutes): 40"
[2018-03-08] MEDS ORDERED: hydrALAZINE 10 MG TABLET PO SCH (14:00)
== END 2018-03-08 14:00 | DRG 654 ==
LOC: MS2 06:17
PROVIDERS: ADMIT Surgery; ATTEND Nurse Practitioner
PROC: 0TBB0ZZ Excision of Bladder, Open Approach (ICD-10-PCS; 2018-03-03)
PROC: 0DBN0ZZ Excision of Sigmoid Colon, Open Approach (ICD-10-PCS; principal; 2018-03-03 07:30)
DX: N32.1 Vesicointestinal fistula (principal); K57.20 Diverticulitis of large intestine with perforation and abscess without bleeding; I16.9 Hypertensive crisis, unspecified; I50.30 Unspecified diastolic (congestive) heart failure; F10.239 Alcohol dependence with withdrawal, unspecified; I11.0 Hypertensive heart disease with heart failure; I48.91 Unspecified atrial fibrillation; D64.9 Anemia, unspecified; E87.6 Hypokalemia; F32.9 Major depressive disorder, single episode, unspecified; E11.42 Type 2 diabetes mellitus with diabetic polyneuropathy; K21.9 Gastro-esophageal reflux disease without esophagitis; K58.9 Irritable bowel syndrome, unspecified; G31.84 Mild cognitive impairment of uncertain or unknown etiology; G89.4 Chronic pain syndrome; G47.00 Insomnia, unspecified; M19.90 Unspecified osteoarthritis, unspecified site; M85.80 Other specified disorders of bone density and structure, unspecified site; H54.7 Unspecified visual loss; Z96.643 Presence of artificial hip joint, bilateral; Z96.651 Presence of right artificial knee joint; Z66 Do not resuscitate; Z87.891 Personal history of nicotine dependence; Z79.891 Long term (current) use of opiate analgesic
CPT/HCPCS: 36415; 74018; 74022; 74430; 80053; 82977; 83605; 83735; 83880; 84100; 84443; 84484; 85025; 85379; 85610; 93005; 93306

== ENCOUNTER 2018-03-09 14:58 | Outpatient (CLI) | payer MEDICARE ==
--- NOTE | 2018-03-09 20:45 | CONSULTATION NOTE ---
Palliative Care Follow Up - Referral Referring Provider: Dr Chow Time of Visit: 03/09/2018. 9:40 - 10:30 Referral setting: Assisted living Referral Reason: Post-op pain - Information Sources Records reviewed: RN notes reviewed, Previous records reviewed History/Review of Systems obtained from: Patient, Nursing Exam limitations: Clinical condition (memory deficits) - History of Present Illness Update Brief HPI Update: -82-year-old woman is back at her assisted living unit after surgery this week for repair of colovesical fistula. -Medical history: Colovesical fistula repaired by surgery February 2018, history of recurrent UTIs, long history of alcohol abuse, currently actively alcoholic, HTN , peripheral neuropathy, GERD, diverticulitis IBS, incontinence, depression, osteoarthritis, osteoporosis, history of appendectomy, history of colonoscopy, hip replacement, knee replacement. -On 03/08/2018 patient discharged back to [facility] living after sigmoidectomy with takedown colovesical fistula performed on 03/03/[address] Farrar/Dr Nur. -The procedure did not include a colostomy, which the patient had requested be avoided if possible. -Patient is extremely pleased to not have a colostomy. -She is ambulatory, and walked down to breakfast this morning. -She has been taking only tramadol for pain, but often does not ask for it. She does admit to pain. -The concern is that she will not ask for pain medications and instead will self medicate with alcohol. -She is always very polite and agreeable when she is advised to drink no alcohol , but is not compliant. She consistently obtains alcohol and hides it. Staff notes she drinks vodka, which doesn't have an odor and looks like water. -She showed signs of mild alcohol withdrawal in hospital, and etoh withdrawal protocol was initiated. -Patient says her post-op pain was controlled well in the hospital with oxycodone. ] Social History - Living Situation Living arrangement: Assisted living ([facility], living here since 2012.) Living Situation: With caregiver(s) Support System: Patient is close with her two daughters who both live out of state. She had a mini-vacation with them both just prior to her hospitalization for surgery. She owns a home in [place] and that's where they stayed for the vacation. Medications/Allergies - Medications Home Medications: Ambulatory Orders Medication Instructions Recorded Confirmed Citalopram [CeleXA] 40 mg PO DAILY 01/19/15 03/10/18 Lisinopril 10 mg PO DAILY 01/19/15 03/10/18 Cholecalciferol (Vitamin D3) 2,000 unit PO DAILY 01/24/16 03/10/18 [Vitamin D3] Cyanocobalamin (Vitamin B-12) 1,000 mcg PO DAILY 01/24/16 03/10/18 [Vitamin B-12] Acetaminophen [Tylenol] 325 - 650 mg PO Q4H PRN 02/28/16 03/10/18 Ascorbic Acid [Vitamin C] 500 mg PO DAILYWM 02/28/16 03/10/18 Ferrous Sulfate 325 mg PO DAILYWM 02/28/16 03/10/18 Folic Acid 1 mg PO DAILY 02/28/16 03/10/18 Lactobacillus Acidophilus 1 each PO BID 02/16/17 03/10/18 [Acidophilus] Omeprazole 20 mg PO DAILY 02/16/17 03/10/18 Bisacodyl [Dulcolax] 1 tab PO DAILY PM PRN 11/11/17 03/10/18 Nystatin 1 applic TOP DAILY PRN MDD under 11/11/17 03/10/18 breast Diphenhydramine HCl [Nighttime 50 mg PO QPM PRN 11/24/17 03/10/18 Sleep Aid] Diphenoxylate/Atropine [Lomotil] 2 each PO QID PRN 12/28/17 03/10/18 Tramadol HCl 50 mg PO QID PRN MDD 400 mg. Give 12/28/17 03/10/18 50mg for pain 1-5 Magnesium Oxide [Mag Ox] 400 mg PO BID #60 tablet 03/08/18 03/10/18 Multivitamin W/Minerals [Theragran 1 tab PO DAILYWM #30 tablet 03/08/18 03/10/18 M] amLODIPine [Norvasc] 5 mg PO DAILY #30 tablet 03/08/18 03/10/18 hydrALAZINE [Apresoline] 10 mg PO TID #90 tablet 03/08/18 03/10/18 Omeprazole [PriLOSEC] 20 mg PO DAILY 03/10/18 03/10/18 Red Wine 1 ea PO QPM MDD 1 glass red wine 03/10/18 5pm oxyCODONE [Roxicodone] 5 mg PO BID MDD for 5 days only 03/10/18 03/10/18 - Allergies Allergies/Adverse Reactions: Allergies Allergy/AdvReac Type Severity Reaction Status Date / Time No Known Drug Allergies Allergy Verified 03/02/18 14:57 Review of Systems - Constitutional Constitutional: reports: Weakness, Poor appetite, Weight gain (03/02/20: 79.5kg ( 174.9 lbs) post-op, due to fluid volume/ascites. BMI 31.0. 5'3" height. 164 lbs 12/26/17. 169 lbs 11/07/17. Weight was 185 lbs July 2017.) - Ears, Nose & Throat Ears, Nose & Throat: reports: Hearing loss - Cardiovascular Cardiovascular: reports: Other (Able to ambulate indepdently) - Respiratory Respiratory: denies: Cough, SOB at rest - Gastrointestinal Gastrointestinal: reports: Constipation (bowel movements twice in hospital post- op. No bowel movement since DC'ing to assisted living last evening. Normally she is not constipated.), Poor appetite (patient has been eating post-op without complications, but has little appetite). denies: Nausea, Vomiting - Genitourinary Genitourinary: reports: Incontinence. denies: Dysuria - Psychiatric Psychiatric: reports: Depression (daughter believes she is depressed) Physical Exam - Vital Signs Temperature: 95.5 F Pulse Rate: 85 O2 Saturation: 95 (room air) Blood Pressure: 140/68 - Physical Exam General Appearance: positive: No acute distress, Alert, Other (Plesant, articulate) Eyes Bilateral: positive: No lid inflammation, Conjunctivae nml, No scleral icterus Neck: positive: No JVD, Trachea midline Cardiovascular: positive: Irregular Respiratory: positive: Chest non-tender, No respiratory distress, Diminished throughout. negative: Rales Abdomen: positive: Abnml bowel sounds (hypoactive), Tenderness, Distended Palliative Care - POLST Patient has POLST: Yes POLST Status: DNR, Selective Treatment Pain: Comment (post-op pain/discomfort in abdomen) Tiredness/Fatigue: Mild (1-3) Drowsiness/Sedation: None Nausea: None Dyspnea: None Anorexia: Mild (1-3) Constipation: Yes Performance Status: Ambulatory. Post-op pain not controlled. Had bowel movements post-op in hospital , but none since coming home. - Palliative Care Discussion: Discussed pain control with patient. She reports it was well controlled in the hospital with oxycodone, but she wasn't DCd with it. The concern with this patient is that she will self-medicate with alcohol if she is in pain. She rarely asks for pain medications, and has had only tramadol this morning. We discussed adding oxycodone temporarily pain medications, and the high risk of falls and other sequelae if she drinks alcohol. We agreed to start a short routine of oxycodone, and still allow her one glass of red wine at 5 pm. Oxycodone will be administered several hours later. She agreed to not drink any other alcohol and verbally acknowledged the risk of doing so. Past experience indicates she continues to drink despite any agreements, but he intent here is to provide adequate pain control so she will be less motivated to self-medicate with alcohol. I spoke with daughter/DPSHANTE Schneider about the pain control plan. She acknowledged her mother's "sneakiness" in obtaining alcohol. She hopes she is not able to obtain it currently, but acknowledges she could ask someone for a ride or get on the bus. We discussed the patient's mild alcohol withdrawal in hospital, and the protocol that is followed, but it is not detox. Jennie and her sister are not pursuing a detox program, they believe it is a waste of time unless the patient is willing to do it, which the patient isn't. She does not want to stop drinking. and the family does not want to make some heroic effort to save her physically in order to live a few more months but be miserable in the process. They realize her mother is lonely and unhappy at [facility] and drinking is all she has. They note she is much happier when they are all together. The sisters give her alcohol but monitor it. Their perspective is to keep it under control while also keeping her happy. They do not think it is hard to keep it under control. Jennie said the family is also considering moving the patient out of [facility] and back into the patient's [place] home in [place]. Moving the patient back home was proposed by [facility], due to the alcohol issue. The family didn't think it was feasible at first, but then she and her , along with her sister, found it could be a feasible step with the three of them moving in with the patient and providing caregiving. The timeframe would be April 2018. I provided anticipatory guidance around caregiving needs, hiring additional caregiving support if required, continuum of care, and end of life issues. Jennie was relieved to know that palliative care coverage can continue if her mother moves back to her home. Impression and Recommendations - Palliative Care Impression: This is an 82-year-old woman, actively alcoholic, recuperating back at [facility] postop from sigmoidectomy with takedown colovesical fistula performed on by Dr Farrar/Dr Nur. Patient is extremely pleased to not have a colostomy. She is having moderate post-op pain and discomfort not managed with tramadol, and has high likelihood of self-medicating with alcohol, so would benefit from short regimen of increased pain control. Recommendations/Counseling Done: Post-op sigmoidectomy with takedown colovesical fistula on 03/03/2018: Improving , able to ambulate independently. Staff is encouraging regular ambulation. Discussed with patient, offered education and encouragement. Increase pain medication to oxycodone 5mg PO BID: morning dose, with evening dose 8pm. Dispsnse #10 - for 5 days only. Hold for over-sedation or signs of alcohol intake. Patient can continue her 1 glass of red wine at 5pm, agreed to since patient is highly noncompliant with alcohol restrictions and strategy is that she may be more compliant if she can continue having her nightly glass of wine. Facility staff will monitor closely for clandestine drinking, and oversedation. Constipation: No bowel movement since DC home, but several BMs at hospital. Also the 5-day opioid regimen is starting. Called Dr Farrar's office, nurse OK 'd starting stool softener, especially with opioids. Hold for loose stools. Lower extremity edema: On amlodipine. Educated and reminded patient to regularly elevate. She doesn't wear compression stockings. Advanced care planning: Family is considering moving patient back to her [place] home in [place], with both sisters, and one spouse, moving in with her to provide caregiving. Family appreciated reassurance that Palliative Care could continue to provide oversight, support and monitoring. Spoke of patient's alcoholism and the family's perspective on monitor and control, the continuum of care, with eventual transition to Hospice, which daughter Jennie is supportive of. I let Jennie know I am on vacation for the next week and gave her office phone number for any issues or concerns. Follow up 1-2 weeks and as needed. Time Spent: 50 minutes were spent with more than 50% of the time spent on counseling, anticipatory guidance, education, and coordination of care.
== END 2018-03-09 14:59 | disposition home or self-care (01) ==
LOC: PC 14:58
PROVIDERS: ATTEND Nurse Practitioner
DX: Z51.5 Encounter for palliative care (principal); Z98.890 Other specified postprocedural states; K59.00 Constipation, unspecified; R60.0 Localized edema; F10.20 Alcohol dependence, uncomplicated; N39.0 Urinary tract infection, site not specified; G62.9 Polyneuropathy, unspecified; Z79.891 Long term (current) use of opiate analgesic; Z66 Do not resuscitate

== ENCOUNTER 2018-03-10 09:24 | Emergency (ER) | payer MEDICARE ==
[2018-03-10] MEDS ORDERED: SODIUM CHLORIDE 0.9% 1,000 ML IV ONE (10:41)
[2018-03-10 11:31] LABS: BASOPHILS % (AUTO) 0.2 %; EOSINOPHILS % (AUTO) 0.3 %; HGB - HEMOGLOBIN 10.9 g/dL (12.0-16.0); LYMPHOCYTES # (AUTO) 1.1 10^3/uL (1.5-3.5); LYMPHOCYTES % (AUTO) 9.2 %; MEAN CORPUSCULAR HEMOGLOBIN 31.1 pg (27.0-31.0); MEAN CORPUSCULAR HGB CONC 32.2 g/dL (32.0-36.0); MEAN CORPUSCULAR VOLUME 96.4 fL (81.0-99.0); MEAN PLATELET VOLUME 7.7 fL (7.9-10.8); MONOCYTES % (AUTO) 8.5 %; NEUTROPHILS # (AUTO) 10.1 10^3/uL (1.5-6.6); NEUTROPHILS % (AUTO) 81.8 %; PLT - PLATELET COUNT 572 10^3/uL (130-450); RED BLOOD COUNT 3.49 10^6/uL (4.20-5.40); RED CELL DISTRIBUTION WIDTH 15.6 % (12.0-15.0); WHITE BLOOD COUNT 12.3 x10^3/uL (4.8-10.8)
[2018-03-10 11:38] LABS: ALBUMIN 2.6 g/dL (3.2-5.5); ALBUMIN/GLOBULIN RATIO 0.6 (1.0-2.2); BILIRUBIN,TOTAL 0.8 mg/dL (0.2-1.0); CALCIUM 9.4 mg/dL (8.5-10.3); CREATININE 1.6 mg/dL (0.4-1.0)
--- NOTE | 2018-03-10 11:39 | ED Physician Documentation ---
PD HPI DYSPNEA - Stated complaint Stated Complaint: SOA, ABD DISTENDED - Chief complaint Chief Complaint: Resp - History obtained from History obtained from: EMS - Additional information Additional information: The patient is an 82-year-old female who arrives via ambulance from [facility] where she developed acute dyspnea while at breakfast. She was noted to have a distended abdomen. At the time of her arrival in the emergency department she is comatose and not able to provide history. A POLST form was sent from [facility] , and states that the patient is to have limited intervention with emphasis on comfort measures. It strictly states no intubation or cardiac resuscitation. Review of her medical record reveals that one week ago she underwent abdominal surgery for repair of a colorectal fistula. She reportedly had been doing well postoperatively until today. Review of Systems Unable to obtain: Unresponsive PD PAST MEDICAL HISTORY - Past Medical History Cardiovascular: Congestive heart failure, Hypertension, High cholesterol, Atrial fibrillation Respiratory: COPD Neuro: Other Endocrine/Autoimmune: Type 2 diabetes GI: GERD, Chronic diarrhea, Diverticulitis, Other AIR AND WATER FILLER: None : Incontinence, Chronic bladder infection, Other HEENT: Chronic vision loss Psych: Depression, Other Musculoskeletal: Osteoarthritis, Osteoporosis Derm: None - Past Surgical History Past Surgical History: Yes General: Appendectomy, Hiatal hernia repair, Colonoscopy, Other Ortho: Hip replacement, Knee replacement, Other /AIR AND WATER FILLER: Other HEENT: Cataracts - Present Medications Home Medications: Ambulatory Orders Medication Instructions Recorded Confirmed Citalopram [CeleXA] 40 mg PO DAILY 01/19/15 03/10/18 Lisinopril 10 mg PO DAILY 01/19/15 03/10/18 Cholecalciferol (Vitamin D3) 2,000 unit PO DAILY 01/24/16 03/10/18 [Vitamin D3] Cyanocobalamin (Vitamin B-12) 1,000 mcg PO DAILY 01/24/16 03/10/18 [Vitamin B-12] Acetaminophen [Tylenol] 325 - 650 mg PO Q4H PRN 02/28/16 03/10/18 Ascorbic Acid [Vitamin C] 500 mg PO DAILYWM 02/28/16 03/10/18 Ferrous Sulfate 325 mg PO DAILYWM 02/28/16 03/10/18 Folic Acid 1 mg PO DAILY 02/28/16 03/10/18 Lactobacillus Acidophilus 1 each PO BID 02/16/17 03/10/18 [Acidophilus] Omeprazole 20 mg PO DAILY 02/16/17 03/10/18 Bisacodyl [Dulcolax] 1 tab PO DAILY PM PRN 11/11/17 03/10/18 Nystatin 1 applic TOP DAILY PRN MDD under 11/11/17 03/10/18 breast Diphenhydramine HCl [Nighttime 50 mg PO QPM PRN 11/24/17 03/10/18 Sleep Aid] Diphenoxylate/Atropine [Lomotil] 2 each PO QID PRN 12/28/17 03/10/18 Tramadol HCl 50 mg PO QID PRN MDD 400 mg. Give 12/28/17 03/10/18 50mg for pain 1-5 Magnesium Oxide [Mag Ox] 400 mg PO BID #60 tablet 03/08/18 03/10/18 Multivitamin W/Minerals [Theragran 1 tab PO DAILYWM #30 tablet 03/08/18 03/10/18 M] amLODIPine [Norvasc] 5 mg PO DAILY #30 tablet 03/08/18 03/10/18 hydrALAZINE [Apresoline] 10 mg PO TID #90 tablet 03/08/18 03/10/18 Omeprazole [PriLOSEC] 20 mg PO DAILY 03/10/18 03/10/18 Red Wine 1 ea PO QPM MDD 1 glass red wine 03/10/18 5pm oxyCODONE [Roxicodone] 5 mg PO BID MDD for 5 days only 03/10/18 03/10/18 - Allergies Allergies/Adverse Reactions: Allergies Allergy/AdvReac Type Severity Reaction Status Date / Time No Known Drug Allergies Allergy Verified 03/10/18 09:46 - Social History Does the pt smoke?: No Smoking Status: Former smoker Does the pt drink ETOH?: Yes Does the pt have substance abuse?: No - Immunizations Immunizations are current?: Yes - POLST Patient has POLST: Yes POLST Status: DNR PD ED PE NORMAL - Vitals Vital signs reviewed: Yes (hypotensive) - General General: Other (Comatose, and mottled appearing.) - HEENT HEENT: Atraumatic, Other (Pupils 5 mm and nonreactive.) - Neck Neck: No JVD - Cardiac Cardiac: RRR - Respiratory Respiratory: Clear bilaterally - Abdomen Abdomen: Other (Markedly distended, with diminished bowel tones.) - Derm Derm: Other (Mottled extremities.) - Neuro Neuro: Other (Comatose, with no response to noxious stimulation.) Eye Opening: None Motor: None Verbal: None GCS Score: 3 Results - Vitals Vitals: Vital Signs - 24 hr 03/10/18 03/10/18 03/10/18 09:32 09:49 09:53 Temperature 35.7 C L Heart Rate 81 62 72 Respiratory 20 28 H 21 Rate Blood Pressure 65/49 L 65/49 L 85/71 L O2 Saturation 77 L 97 03/10/18 03/10/18 03/10/18 10:00 10:10 10:30 Temperature Heart Rate 69 73 42 L Respiratory 18 18 18 Rate Blood Pressure 85/77 L 62/38 L 45/35 L O2 Saturation 03/10/18 03/10/18 03/10/18 11:30 12:21 13:17 Temperature Heart Rate 58 L 0 L 82 Respiratory 12 0 L 14 Rate Blood Pressure 72/27 L 70/61 L O2 Saturation 0 L Oxygen O2 Source [] Room air O2 Source [] Room air O2 Source Room air Oxygen Flow Rate 15 - EKG (time done) 09:35 Rate: Rate (enter#) (93) Rhythm: NSR Other comments: Other comments (Q's in inferior leads III and aVF, consistent with previous inferior CA.) Compare to prior EKG: Unchanged from prior EKG Computer interpretation: Agree with computer - Labs Labs: Laboratory Tests 03/10/18 03/10/18 03/10/18 11:00 11:00 11:00 WBC 12.3 H RBC 3.49 L Hgb 10.9 L Hct 33.7 L MCV 96.4 MCH 31.1 H MCHC 32.2 RDW 15.6 H Plt Count 572 H MPV 7.7 L Neut # (Auto) 10.1 H Lymph # (Auto) 1.1 L Kinney # (Auto) 1.0 Eos # (Auto) 0.0 Baso # (Auto) 0.0 Absolute Nucleated RBC 0.01 Nucleated RBC % 0.1 Manual Slide Review Indicated Platelet Morphology RARE GIANT PLATELETS Sodium 140 Potassium 4.6 Chloride 98 L Carbon Dioxide 25 Anion Gap 17.0 H BUN 29 H Creatinine 1.6 H Estimated GFR (MDRD) 31 L Glucose 68 L Lactic Acid Calcium 9.4 Total Bilirubin 0.8 AST 26 ALT 10 Alkaline Phosphatase 76 Troponin I < 0.04 Total Protein 7.0 Albumin 2.6 L Globulin 4.4 H Albumin/Globulin Ratio 0.6 L Lipase 100 H 03/10/18 11:00 WBC RBC Hgb Hct MCV MCH MCHC RDW Plt Count MPV Neut # (Auto) Lymph # (Auto) Kinney # (Auto) Eos # (Auto) Baso # (Auto) Absolute Nucleated RBC Nucleated RBC % Manual Slide Review Platelet Morphology Sodium Potassium Chloride Carbon Dioxide Anion Gap BUN Creatinine Estimated GFR (MDRD) Glucose Lactic Acid 8.5 H* Calcium Total Bilirubin AST ALT Alkaline Phosphatase Troponin I Total Protein Albumin Globulin Albumin/Globulin Ratio Lipase PD MEDICAL DECISION MAKING - ED course Complexity details: reviewed old records, reviewed results, re-evaluated patient , considered differential, d/w family, d/w farm consultant ED course: The patient after arrival in the emergency department. She was comatose , with a [place] Coma Score of 3 upon arrival in the emergency department. She was hypotensive and had a markedly distended abdomen. Peripheral IV access was not able to be obtained. I consulted with anesthesia for placement of central line, and that was performed. Normal saline was administered IV, with no subsequent improvement in the patient's rapidly deteriorating condition. Abnormal lab results included a markedly elevated serum lactate level of 8.5. I discussed her condition by telephone with her daughter in [place]. She confirms that the patient would not want to have aggressive resuscitative efforts instituted. Over the next hour the patient's vital signs deteriorated until she became apneic and asystolic. She was pronounced at 11:14 AM. - Sepsis Event Vital Signs: Vital Signs - 24 hr 03/10/18 03/10/18 03/10/18 09:32 09:49 09:53 Temperature 35.7 C L Heart Rate 81 62 72 Respiratory 20 28 H 21 Rate Blood Pressure 65/49 L 65/49 L 85/71 L O2 Saturation 77 L 97 03/10/18 03/10/18 03/10/18 10:00 10:10 10:30 Temperature Heart Rate 69 73 42 L Respiratory 18 18 18 Rate Blood Pressure 85/77 L 62/38 L 45/35 L O2 Saturation 03/10/18 03/10/18 03/10/18 11:30 12:21 13:17 Temperature Heart Rate 58 L 0 L 82 Respiratory 12 0 L 14 Rate Blood Pressure 72/27 L 70/61 L O2 Saturation 0 L Oxygen O2 Source [] Room air O2 Source [] Room air O2 Source Room air Oxygen Flow Rate 15 Departure - Departure Disposition: 20 Clinical Impression: Abdominal distension, Metabolic acidosis Sepsis Qualifiers: Sepsis type: sepsis due to unspecified organism Qualified Code(s): A41.9 - Sepsis, unspecified organism Sepsis following intra-abdominal surgery Qualifiers: Encounter type: initial encounter Qualified Code(s): T81.4XXA - Infection following a procedure, initial encounter Discharge Date/Time: 03/10/18 14:00
--- NOTE | 2018-03-10 11:41 | XRAY Report ---
Procedure Date: 03/10/2018 Accession Number: [id number] / [id number] Procedure: XR - Chest for Line Placement CPT Code: FULL RESULT: EXAM: CHEST RADIOGRAPHY EXAM DATE: 03/10/2018 11:23 AM. CLINICAL HISTORY: Central line placement. COMPARISON: ABDOMEN ACUTE 03/07/2018. TECHNIQUE: 1 view. FINDINGS: Lungs/Pleura: Left hemidiaphragm is not well-demonstrated. No pneumothorax. Lung volumes are diminished compared to 03/07/2018 chest x-ray. Mediastinum: Enlarged cardiac silhouette. Extensive atherosclerotic aortic calcifications. Other: New right IJ central line with tip overlying right atrium, approximately 1.5 cm from cavoatrial junction. IMPRESSION: 1. New right IJ central line with tip overlying right atrium, approximately 1.5 cm from cavoatrial junction. 2. Poor inspiration with bibasilar atelectasis and potential left basilar airspace disease. RADIA
[2018-03-10 11:46] LABS: PLATELET MORPHOLOGY RARE GIANT PLATELETS (NORMAL)
[2018-03-10 13:20] VITALS: BP 70/61
== END 2018-03-10 14:00 | disposition expired ==
LOC: EDUNIT# → ED 09:24
DX: E87.2 Acidosis (principal); A41.9 Sepsis, unspecified organism; T81.4XXA Infection following a procedure, initial encounter; R14.0 Abdominal distension (gaseous); I95.9 Hypotension, unspecified; I11.0 Hypertensive heart disease with heart failure; I50.9 Heart failure, unspecified; E78.00 Pure hypercholesterolemia, unspecified; I48.91 Unspecified atrial fibrillation; J44.9 Chronic obstructive pulmonary disease, unspecified; E11.9 Type 2 diabetes mellitus without complications; K21.9 Gastro-esophageal reflux disease without esophagitis; M19.90 Unspecified osteoarthritis, unspecified site; M81.0 Age-related osteoporosis without current pathological fracture; Z87.891 Personal history of nicotine dependence
CPT/HCPCS: 36415; 36556; 71045; 80053; 83605; 83690; 84484; 85025; 85610; 85730; 87040; 93005; 96360; 99285

== ENCOUNTER 2018-03-10 12:58 | Outpatient (CLI) | payer MEDICARE | END 2018-03-10 12:59 | disposition critical access hospital (66) | LOC: EMS 12:58 | PROVIDERS: ATTEND Surgery | DX: R06.02 Shortness of breath (principal); R14.0 Abdominal distension (gaseous) | CPT/HCPCS: A0425; A0429 ==